=== PATIENT | male | born 1955 | race Caucasian/White ===

== ENCOUNTER 2022-09-13 10:52 | Emergency (ER) | payer BC, OTHER ==
--- OUTSIDE RECORDS SUMMARY | 2022-09-13 11:00 | XMS REPORT | Continuity of Care Document ---
:1955 Author Organization [facility] t Address [address] [place] [address] Care Team Providers Name Role Phone Nile PENNINGTON [facility] Primary Care Physician JIMBO VALERIO Attending Clinician Unavailable LAUREANO HENNING Attending Clinician Unavailable ANA MORILLO Attending Clinician Unavailable Ana Morillo Attending Clinician Tita Oneill MA Attending Clinician Unavailable JIMBO VALERIO Attending Clinician Unavailable Jimbo Valerio Attending Clinician [phone] Emerald Attending Clinician Unavailable Brandin Milan Attending Clinician Hemant Mccoy MD Attending Clinician Flaco David NP Attending Clinician Ana Doll Attending Clinician LAUREANO HENNING Attending Clinician Unavailable Laureano Henning Attending Clinician Shanta Segura RN Attending Clinician Unavailable Tyler Dowd Attending Clinician Unavailable Koudela_A Admitting Clinician Unavailable JIMBO VALERIO Admitting Clinician Unavailable Jimbo Valerio E Admitting Clinician [phone] RICO PERRIN Admitting Clinician Unavailable Rico Perrin Admitting Clinician KNOW, DOES_NOT Admitting Clinician Unavailable Payers Payer Name Policy Type Policy Number Effective Date Expiration Date S ource BCBSTX PPO [id number] 2017 00:00:00 [place] [id number] 2017 [place] [id number] 2020 First Cover[employer] 00:00:00 [place] [id number] 2020 First Cover[employer] 00:00:00 - [facility] Problems Condition Condition Condition Status Onset Resolution Last Treating Co mments Source Name Details Category Date Date Treatment Clinician Date I71.01, I71.01, Diagnosis Active 2021-10-27 Memoria Z95.828 Z95.828 -11 19:30:00 l Active 00:00: Ivan 10/13/2021 00 [facility] S/P S/P Disease Active Overview: [place] insertion insertion 1-10 [facility] e[facility] of of 00:00: g of this endovascul endovascul 00 note ar ar might be thoracic thoracic different aortic aortic from the stent stent original. graft graft Carotid-s ubclavian bypass + TEVAR 04/20/21 Shortness Shortness Disease Active [facility] of breath of breath 06-10 Heal th 00:00: 00 Simple Simple Disease Active [place] obesity obesity 06-10 Health 00:00: 00 I71.2 - I71.2 - Diagnosis Active 2021-06-12 Memoria THORACIC THORACIC 8- 15:33:00 l AORTIC AORTIC 00:01: Ivan ANEURYSM, ANEURYSM, 00 WITH WITH Active 05/04/2021 OPID [place] I71.2 I71.2 Diagnosis Active 2021-05-08 Mem oria Active 05-01 12:44:00 l 05/01/2021 00:00: Petr mcpherson [address] THORACIC THORACIC Diagnosis Active 2021-05-04 Memoria AORTIC AORTIC 04-17 12:19:00 l ANEURYSM, ANEURYSM, 00:00: Herm lazara WITHOUT WITHOUT 00 RUPTUR RUPTUR Active 04/17/2021 [facility] Thoracic Thoracic Disease Active [facility] aortic aortic 04-17 Health aneurysm aneurysm 00:00: without without 00 rupture rupture CHEST PAIN CHEST Diagnosis Active 2021-08-25 Memoria PAIN 04-10 14:47:00 l Active 00:00: Nark[place] 04/10/2021 00 [facility] I71.03 - I71.03 - Diagnosis Active 2021-05-16 Memoria DISSECTION DISSECTION 04-09 15:32:00 l OF OF 00:01: Ivan THORACOABD THORACOABD 00 OMINAL OMINAL Active 04/09/2021 [facility] [place] Dissection Dissection Disease Active U T of of 04-09 Health thoracic thoracic 00:00: aorta aorta 00 Chest pain Chest Problem Active 2021-10-25 M emoria (finding) pain 23:52:56 l (finding) Narka Active Problem 10/25/2021 [facility] Low blood Low blood Problem Active 2021-10-25 Memoria pressure pressure 23:52:56 l (disorder) (disorder) He rmann Active Problem 10/25/2021 [facility] Pain Pain Problem Active 2021-10-25 Memor ia (finding) (finding) 23:52:56 l Active Ivan Problem 10/25/2021 [facility] 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 He rmann (disorder) (disorder) Active Problem 10/25/2021 [facility] THORACIC THORACIC Diagnosis Active 2021-05-08 Memoria AORTIC AORTIC 12:44:00 l ANEURYSM, ANEURYSM, Herm lazara RUPTURED RUPTURED Active [facility] CHEST CHEST Diagnosis Active 2021-08-25 Mem oria PAIN, PAIN, 14:47:00 l UNSPECIFIE UNSPECIFIE He rmlazara D D Active [facility] Chest Chest Problem 2021-04-17 Immanuel nichols pain, pain, 23:04:18 l unspecifie unspecifie Sam bauman 04/17/2021 [facility] Allergies, Adverse Reactions, Alerts Allergy Allergy Status Severity Reaction(s) Onset Inactive Treating Comm ents Source Name Type Date Date Clinician No Known DA Active [facility] 03-28 [place] [facility] 00:00: [address] No Known DA Active [facility] Allergie 03-28 [place] s 00:00: [address] Social History Social Habit Start Date Stop Date Quantity Comments Source Exposure to Not sure [facility] SARS-CoV-2 (event) Social History 2021-04-20 2021-04-20 [facility] 14:19:33 14:19:33 Sex [birth year] [facility] 00:00:00 00:00:00 Smoking Status Start Date Stop Date Source Tobacco smoking consumption unknown [facility] Medications Ordered Filled Start Stop Current Ordering Indication Dosage Frequency Signature Comments Components Source Medication Medication Date Date Medication? Clinician (SIG) Name Name metoprolol Yes PO, Daily, M emoria extended 1-21 0 l release 16:03: Refill(s) Blanca nn 00 Amlodipine Yes PO, Daily, M emoria 1-21 0 l 16:02: Refill(s) Ivan 00 24 HR Yes 500 mg = 1 Memori a Niacin 500 1-21 tab, PO, l MG Extended 16:01: Bedtime, 0 Narka Release 00 Refill(s) Tablet [Niaspan] Sulfamethox Yes 1 tab, PO, Memoria azole 800 7-25 Q12H, X 5 l MG / 16:53: day, # 10 Ivan Trimethopri 00 tab, 0 m 160 MG Refill(s) Oral Tablet [Bactrim] NIFEdipine Yes 60 mg = 1 Me moria 60 mg oral 7-25 tab, PO, l tablet, 16:47: Daily, # Petr n extended 00 30 tab, 0 release Refill(s) carvedilol Yes 25 mg = 1 Me moria 25 mg oral 7-25 tab, PO, l tablet 16:46: Q12H, # 60 Blanca nn 00 tab, 0 Refill(s) Melatonin 3 Yes 3 mg = 1 Me moria MG Extended 7-25 tab, PO, l Release 16:46: Bedtime, Petr n Tablet 00 PRN as needed for insomnia, X 14 day, # 14 tab, 0 Refill(s) Hydrochloro Yes 50 mg = 2 M emoria thiazide 25 7-25 tab, PO, l MG Oral 16:44: Daily, # Petr n Tablet 00 60 tab, 0 Refill(s) lisinopril Yes 40 mg = 2 Me moria 20 mg oral 7-25 tab, PO, l tablet 16:44: Daily, # Ivan 00 60 tab, 0 Refill(s) Aspirin 81 Yes 81 mg = 1 Me moria MG Chewable 7-25 tab, PO, l Tablet 16:43: Daily, # Ivan 00 30 tab, 0 Refill(s) atorvastati Yes 10 mg = 1 M emoria n 10 mg 7-25 tab, PO, l oral tablet 16:43: QAM, # 30 H ermann 00 tab, 0 Refill(s) carvedilol Yes 25mg Q.5D Take 25 mg U T (Coreg) 25 7-25 by mouth Healt h MG tablet 00:00: every 12 00 (twelve) hours. carvedilol 0 Yes 25mg Q.5D Take 25 mg U T (Coreg) 25 7-25 by mouth Healt h MG tablet 00:00: every 12 00 (twelve) hours. carvedilol 0 Yes 25mg Q.5D Take 25 mg U T (Coreg) 25 7-25 by mouth Healt h MG tablet 00:00: every 12 00 (twelve) hours. NIFEdipine Yes 60mg QD Take 60 mg U T CC (Adalat 7-25 by mouth 1 Hea l[facility] CC) 60 MG 00:00: (one) time 24 hr 00 each day. tablet carvedilol Yes 25mg Q.5D Take 25 mg U T (Coreg) 25 7-25 by mouth Healt h MG tablet 00:00: every 12 00 (twelve) hours. NIFEdipine Yes 60mg QD Take 60 mg U T CC (Adalat 7-25 by mouth 1 [facility]a l[facility] CC) 60 MG 00:00: (one) time 24 hr 00 each day. tablet Vancomycin No 2000 mg: Me moria 7-24 infuse l 04:00: over 2.5 Narka 00 hours For adult patients only: Round to nearest 250 mg per Medical Staff approval MEDICATION WASTE Product Size: 1000 mg Product Wasted: ___ mg Vancomycin No Notes: Memor ia 7-23 Vancomycin l 16:27: Pharmacy [place] 55 Dosing Protocol PHARMAC Y USE ONLY Note: This is not a medication order. This is a consultati on order. Vancomycin No 2000 mg: Me moria 7-23 infuse l 15:01: over 2.5 Ivan 00 hours For adult patients only: Round to nearest 250 mg per Medical Staff approval MEDICATION WASTE Product Size: 1000 mg Product Wasted: ___ mg cefepime No Notes: Memoria 7-23 (Same As: l 15:00: Maxipime) MEDICATION WASTE Product Size: 1000 mg Product Wasted: ___ mg NIFEdipine No Notes: Memor ia 60 mg oral 7-23 (Same as: l tablet, 14:00: Adalat CC, Herm lazara Procardia release XL) Give on empty stomach. Take 1 hour before or 2 hours after meal; "Avoid grapefruit and grapefruit juice". Do not crush Hydrochloro No Notes: Gregorio maynor thiazide 7-23 (Same as: l 14:00: Hydrodiuri l) With food. Coreg No Notes: Memoria 7-23 Give with l 02:00: food. Ivan 00 (Same As: Coreg) Lisinopril No Notes: Memor ia 7-22 (Same as: l 21:07: Prinivil, Ivan 00 Zestril) Lisinopril No Notes: Memor ia 7-22 (Same as: l 15:47: Prinivil, Ivan Zestril) Lasix No Notes: Memoria 7-22 (Same as: l 14:00: Lasix) Docusate No Notes: Memoria Sodium 100 7-22 (Same as: l MG Oral 14:00: Colace) Capsule (Do Not [Colace] Crush) metoprolol No Notes: Memor ia tartrate 7-22 (Same as: l 10:00: Lopressor) Tylenol No Notes: Do Memor ia 7-22 not exceed l 05:00: 4 gm/day. (Same as: Tylenol) sennosides, No Notes: Gregorio maynor RETIREMENT 8.6 MG - (Same as: l Oral Tablet 02:00: Senokot) He rm metoprolol No Notes: Memor ia tartrate 7-21 (Same as: l 21:38: Lopressor) Potassium No Notes: Memori a Chloride - (Same as: l 18:51: K-Dur 20) "Do Not Crush" Give with food and full glass of water For patients unable to swallow tablet, dissolve in one half glass of water. Allow about 2 minutes for the tablets to disintegra te. Stir before giving to prepare slurry and administer . Please exclude Patient s with feeding tube less than 14 Maori (Dobhoff, J-tube etc) and pediatric and patients. potassium No Notes: Memori a phosphate-s - (Same as: l odium 18:51: Phos-NaK) phosphate Each 1.5 250 mg-280 gm pkt has mg-160 mg 250mg oral powder phosphorou for s. Mix reconstitut w/2.5oz ion water and stir. potassium No Notes: Memori a phosphate 7-21 (Same as: l 18:51: K Phosphate) Infuse over 4 hour. Do not infuse phosphorou s concurrent ly in the same line as TPN or IVF that contains calcium. For double lumen central lines, phosphorou s may be infused in a separate lumen from TPN. sodium No Notes: Memoria phosphate 7-21 Infuse l 18:51: over 4 [place]arka 00 hour. Do not infuse phosphorou s concurrent ly in the same line as TPN or IVF that contains calcium. For double lumen central lines, phosphorou s may be infused in a separate lumen from TPN. Magnesium No Notes: Memori a Sulfate - WASTE: F/P l 18:51: - Sink; E - Municipal Trash Bin Magnesium No Notes: Memori a Oxide 7- (Same as: l 18:51: Mag-Ox Ivan 400) Magnesium oxide [id number] g elemental magnesium Dose=____m g magnesium oxide (___mg elemental magnesium) Calcium No Notes: Memoria Gluconate 7- WASTE: F/P l 18:51: - Sink; E - Municipal Trash Bin Melatonin 3 No Notes: Gregorio maynor MG Extended 04-22 (Same as: l Release 18:46: Melatonin) Herm lazara Tablet 00 Hydrochloro No Notes: Gregorio maynor thiazide - (Same as: l 12.5 MG 14:00: Microzide) Herm lazara Oral 00 With food. Capsule Simethicone No Notes: Gregorio maynor 7-21 (Same as: l 13:34: Mylicon) Milk of No Notes: Memoria Magnesia 7- (Same as: l 13:34: Milk of Magnesia, MOM) metoprolol No Notes: Memor ia tartrate - (Same as: l 13:00: Lopressor) Metoprolol No 5 mg, Memori a - Route: l 05:00: IVP, Drug form: INJ, Q8H, Dosing Weight 94.636, kg, Start date: 04/22/21 0:00:00 CDT, Duration: 30 day, Stop date: 05/21/21 16:00:00 CDT metoprolol No Notes: Memor ia tartrate - (Same as: l 00:36: Lopressor) 12.5 mg=1/2 X 25 mg TAB Metoprolol No Notes: Memor ia 7-20 (Same as: l 21:12: Lopressor) Push over 2 minutes Hydralazine No Notes: Gregorio maynor 7-20 (Same as: l 21:10: Apresoline ) Push over 5 minutes NS (Bolus) No 500 mL, Gregorio maynor IV 7-20 500 ml/hr, l 14:45: Infuse Over: 1 hr, Route: IV, 500, Drug form: INJ, ONCE, Priority: STAT, Dosing Weight 94.636 kg, Start date: 04/21/21 9:45:00 CDT, Stop date: 04/21/21 9:45:00 CDT, 0 Aspirin 81 No Notes: Memor ia MG Chewable 7-20 Take with l Tablet 14:00: food. atorvastati No Notes: Gregorio maynor n 7-20 (Same As: l 14:00: Lipitor) pantoprazol No Notes: Gregorio maynor e 7-20 Tablet l 14:00: should not be chewed or crushed. (Same as: Protonix) metoprolol No Notes: Memor ia tartrate 7-20 (Same as: l 14:00: Lopressor) Norvasc No Notes: Memoria 7-20 (Same as: l 14:00: Norvasc) Docusate No Notes: Memoria Sodium 50 7-20 (Same as l MG / 14:00: Senokot-S) sennosides, 00 Equiv. to RETIREMENT 8.6 MG Donna-Colac Oral Tablet e. Robaxin No Notes: Memoria 7-20 (Same l 12:20: as:Robaxin ) Acetaminoph No Notes: Max Memoria en 7-20 acetaminop l 07:00: hen 4000 mg/day (4 gm/day). (Same as: Tylenol Extra Strength) Tramadol No Notes: 25 Gregorio maynor 7-20 mg = 1/2 x l 05:00: 50 mg TAB Not to exceed 400mg/day. (Same As: Ultram) Dilaudid No Notes: Memoria 7-20 Same as l 04:48: Dilaudid Ivan 00 Dilaudid No Notes: Memoria 7-20 Same as l 02:56: Dilaudid Ivan 00 Robaxin No Notes: Memoria 7-20 (Same l 02:52: as:Robaxin Ivan 00 ) Ofirmev No Notes: Memoria 7-20 Infuse l 00:09: over 15 Narka minutes Do not exceed 4gm/day of acetaminop hen MEDICATION WASTE Product Size: 1000 mg Product Wasted: ___ mg Oxycodone No Notes: Memori a Hydrochlori 04-21 (Same as: l de 5 MG 00:09: Roxicodone Herm lazara Oral Tablet 00 ) Cardene 40 No Notes: Memor ia mg in NS 04-20 Same as: l 200 mL 23:31: Cardene (Titrate.) 00 Concentrat IV 40 mg ion: (0.2 mg /1 ml ) Dextrose No 12.5 gm, Memor ia 50% Syringe 04-20 25 mL, l (D50W) 23:13: Route: Narka 00 IVP, Drug Form: INJ, Dosing Weight 94.636, kg, PRN, PRN Blood Glucose Results, Start date: 04/20/21 18:13:00 CDT, Duration: 30 day, Stop date: 05/20/21 18:12:00 CDT, 0 Glucagon No 1 mg, Memoria 04-20 Route: IM, l 23:13: Drug form: Ivan 00 PDR/INJ, PRN, Dosing Weight 94.636, kg, PRN Blood Glucose Results, Start date: 04/20/21 18:13:00 CDT, Duration: 30 day, Stop date: 05/20/21 18:12:00 CDT, 0 Insulin No Notes: Memoria Lispro 04-20 (Same as: l 23:13: Humalog) Roll in palms of hands gently; Do not shake vigorously . WASTE: F/P - Black; E - Municipal Trash Bin Stable for 28 days at room temperatur e. Expires in days from ____Date NS 1,000 mL No 1,000 mL, M emoria 04-20 Rate: 40 l 23:13: ml/hr, Narka 00 Infuse over: 25 hr, Route: IV, Dosing Weight 94.636 kg, Total Volume: 1,000, Start date: 04/20/21 18:13:00 CDT, Duration: 30 day, Stop date: 05/20/21 18:12:00 CDT, BSA: 2.15 m2, 0 Fentanyl No Notes: Memoria 7-19 (Same as: l 23:11: Sublimaze) Ivan 00 Preservati ve free. Potassium No Notes: Memori a Chloride 04-20 (Same as: l 23:10: KCL) 10 Ivan 00 mEq/100ml product recommende d for peripheral line administra tion. Infuse no faster than 10 mEq/hr if given peripheral ly. sodium No Notes: Memoria phosphate 04-20 Infuse l 23:10: over 4 Ivan 00 hour. Do not infuse phosphorou s concurrent ly in the same line as TPN or IVF that contains calcium. For double lumen central lines, phosphorou s may be infused in a separate lumen from TPN. potassium No Notes: Memori a phosphate - (Same as: l 23:10: K [place] 00 Phosphate) Infuse over 4 hour. Do not infuse phosphorou s concurrent ly in the same line as TPN or IVF that contains calcium. For double lumen central lines, phosphorou s may be infused in a separate lumen from TPN. potassium No Notes: Memori a phosphate-s - (Same as: l odium 23:10: Phos-NaK) Ivan phosphate 00 Each 1.5 250 mg-280 gm pkt has mg-160 mg 250mg oral powder phosphorou for s. Mix reconstitut w/2.5oz ion water and stir. Magnesium No Notes: Memori a Sulfate 04-20 WASTE: F/P l 23:10: - Sink; E [place]a 00 - Municipal Trash Bin Magnesium No Notes: Memori a Oxide 04-20 (Same as: l 23:10: Mag-Ox Narka 00 400) Magnesium oxide 155np=390t g elemental magnesium Dose=____m g magnesium oxide (___mg elemental magnesium) Calcium No Notes: Memoria Gluconate 04-20 Contains: l 23:10: calcium gluconate 20mg/mL NaCl 0.67% 50mL WASTE: F/P - Sink; E - Municipal Trash Bin calcium No Notes: Memoria carbonate 04-20 (Same As: l 500 mg (200 23:10: Tums) Blanca nn mg 00 Calcium elemental Carbonate calcium) 500 mg = oral tablet 200 mg elemental calcium Dose = mg calcium carbonate ( mg elemental calcium) ondansetron No Route: IV, Memoria (ANES) 04-20 Drug form: l 22:50: INJ, ONCE, Stop date: 04/20/21 17:50:00 CDT dexamethaso No Route: IV, Memoria ne (ANES) 04-20 Drug form: l 22:50: INJ, ONCE, Stop date: 04/20/21 17:50:00 CDT sugammadex No Route: IV, M emoria (ANES) 04-20 Drug form: l 22:50: SOLN, ONCE, Stop date: 04/20/21 17:50:00 CDT ceFAZolin No Route: IV, Me moria (ANES) 04-20 Drug form: l 22:21: INJ, ONCE, Stop date: 04/20/21 17:21:00 CDT fentaNYL No Route: IV, Mem oria (ANES) 04-20 Drug form: l 22:16: INJ, ONCE, Stop date: 04/20/21 17:16:00 CDT protamine No Route: IV, Me moria (ANES) 04-20 Drug form: l 22:10: INJ, ONCE, Stop date: 04/20/21 17:10:00 CDT Labetalol No 10 mg, 2 Gregorio maynor 7-19 mL, Route: l 21:39: IVP, Drug form: INJ, Q5Min, Dosing Weight 94.636, kg, PRN Elevated BP, Start date: 04/20/21 16:39:00 CDT, Duration: 5 doses or times, Stop date: 04/21/21 0:00:00 CDT, 0 Acetaminoph No Notes: Max Memoria en - acetaminop l 21:39: hen 4000 Narka mg/day (4 gm/day). (Same as: Tylenol Extra Strength) Oxycodone No Notes: Memori a Hydrochlori - (Same as: l de 5 MG 21:39: Roxicodone Herm lazara Oral Tablet ) Fentanyl No Notes: Memoria 7-19 (Same as: l 21:39: Sublimaze) Preservati ve free. Flumazenil No Notes: Memor ia 7-19 (Same as: l 21:39: Romazicon) Naloxone No Notes: Memoria 7-19 Same as l 21:39: Narcan Ondansetron No Notes: Gregorio maynor 7-19 (Same as: l 21:39: Zofran) MEDICATION WASTE Product Size: 4 mg Product Wasted: ___ mg Hydralazine No Notes: Gregorio maynor 7-19 (Same as: l 21:39: Apresoline Ivan ) Push over 5 minutes rocuronium No Route: IV, M emoria (ANES) 7- Drug form: l 20:49: INJ, ONCE, Narka 00 Stop date: 04/20/21 15:49:00 CDT norepinephr No Route: IV, Memoria ine (ANES) 7-19 Drug form: l 10 20:14: INJ, Start Ivan microgram 00 date: 04/20/21 15:14:00 CDT, Stop date: 04/20/21 16:14:00 CDT heparin No Route: IV, Gregorio maynor (ANES) 04-20 Drug form: l 20:09: INJ, ONCE, Stop date: 04/20/21 15:09:00 CDT calcium No Route: IV, Gregorio maynor chloride 04-20 Drug form: l (ANES) 19:43: INJ, ONCE, Blanca Stop date: 04/20/21 14:43:00 CDT ceFAZolin No Route: IV, Me moria (ANES) 04-20 Drug form: l 19:38: INJ, ONCE, Stop date: 04/20/21 14:38:00 CDT fentaNYL No Route: IV, Mem oria (ANES) 04-20 Drug form: l 19:38: INJ, ONCE, Stop date: 04/20/21 14:38:00 CDT propofol No Route: IV, Mem oria (ANES) 04-20 Drug form: l 19:38: INJ, ONCE, Stop date: 04/20/21 14:38:00 CDT lidocaine No Route: IV, Me moria (ANES) 04-20 Drug form: l 19:38: INJ, ONCE, Stop date: 04/20/21 14:38:00 CDT rocuronium No Route: IV, M emoria (ANES) 04-20 Drug form: l 18:42: INJ, ONCE, Stop date: 04/20/21 13:42:00 CDT Isolyte S No Route: IV, Me moria PH 7.4 04-20 Total l (ANES) 1000 18:01: Volume: Her carranza mL 00 1,000, Start date: 04/20/21 13:01:00 CDT, Stop date: 04/20/21 14:01:00 CDT Sulfamethox No Notes: One Memoria azole 800 7-15 DS tablet l MG / 02:00: = Trimethopri trimethopr m 160 MG im 160mg + Oral Tablet sulfametho [Bactrim] xazole 800 mg Dose based on trimethopr im component On empty stomach with a glass of water. (Same As: Bactrim DS, Septra DS) Aspirin Low 2020-0 Yes 81mg QD Chew 81 mg UT Dose 81 MG 7-15 1 (one) Health chewable 00:00: time each tablet 00 day. Aspirin Low 2020-0 Yes 81mg QD Chew 81 mg UT Dose 81 MG 7-15 1 (one) Health chewable 00:00: time each tablet 00 day. Aspirin Low 2020-0 Yes 81mg QD Chew 81 mg UT Dose 81 MG 7-15 1 (one) Health chewable 00:00: time each tablet 00 day. lisinopril 2020-0 Yes 40mg QD Take 40 mg U T 20 MG 7-15 by mouth 1 Health tablet 00:00: (one) time 00 each day. Aspirin Low 2020-0 Yes 81mg QD Chew 81 mg UT Dose 81 MG 7-15 1 (one) Health chewable 00:00: time each tablet 00 day. lisinopril 2020-0 Yes 40mg QD Take 40 mg U T 20 MG 7-15 by mouth 1 Health tablet 00:00: (one) time 00 each day. Aspirin 81 2020-0 Yes 81 mg = 1 Me moria MG Chewable 7-14 tab, PO, l Tablet 23:42: Daily, # Ivan 00 30 tab, 0 Refill(s) lisinopril 0 Yes 40 mg = 2 Me moria 20 mg oral 7-14 tab, PO, l tablet 23:40: Daily, # Ivan 00 60 tab, 0 Refill(s) Sulfamethox 0 Yes 1 tab, PO, Memoria azole 800 7-14 Q12H, X 5 l MG / 23:40: day, # 10 Narka Trimethopri 00 tab, 0 m 160 MG Refill(s) Oral Tablet [Bactrim] Amlodipine 0 Yes 1 cap, PO, M emoria 5 MG / 7-14 QAM, # 30 l Benazepril 23:39: cap, 0 Blanca nn hydrochlori 00 Refill(s) de 40 MG Oral Capsule atorvastati Yes 10 mg = 1 M emoria n 10 mg 7-14 tab, PO, l oral tablet 23:39: QAM, # 30 H ermann 00 tab, 0 Refill(s) hydrochloro Yes 12.5 mg = M emoria thiazide 7-14 1 tab, PO, l 12.5 mg 23:39: QAM, # 30 Blanca nn oral tablet 00 tab, 0 Refill(s) metoprolol Yes 25 mg = 1 Me moria tartrate 25 7-14 tab, PO, l mg oral 23:39: Q12H, # 60 Herm lazara tablet 00 tab, 0 Refill(s) niacin 500 Yes 1,000 mg = M emoria mg oral 7-14 2 tab, PO, l tablet, 23:39: Bedtime, # Herm lazara extended 00 60 tab, 0 release Refill(s) pantoprazol Yes 40 mg = 1 M emoria e 40 mg 7-14 tab, PO, l oral 23:39: Daily, # Ivan enteric 00 30 tab, 0 coated Refill(s) tablet Doxycycline No Notes: NO M emoria 04-14 MILK/ANTAC l 17:00: IDS/IRON Narka 00 Take 1 hour before or 2 hours after dairy products Motrin No Notes: Memoria 7-13 (Same as: l 01:55: Motrin) Narka 00 "Do Not Crush" Give with food. hydroCHLORO Yes UT thiazide 7-12 Health (HYDRODiuri 00:00: l) 12.5 MG 00 tablet hydroCHLORO 0 Yes UT thiazide 7-12 Health (HYDRODiuri 00:00: l) 12.5 MG 00 tablet hydroCHLORO 0 Yes UT thiazide 7-12 Health (HYDRODiuri 00:00: l) 12.5 MG 00 tablet hydroCHLORO 2020-0 Yes UT thiazide 7-12 Health (HYDRODiuri 00:00: l) 12.5 MG 00 tablet hydroCHLORO 2020-0 Yes UT thiazide 7-12 Health (HYDRODiuri 00:00: l) 12.5 MG 00 tablet hydroCHLORO 0 Yes UT thiazide 7-12 Health (HYDRODiuri 00:00: l) 12.5 MG 00 tablet hydroCHLORO 0 Yes UT thiazide 7-12 Health (HYDRODiuri 00:00: l) 12.5 MG 00 tablet amLODIPine- 2021-0 Yes UT benazepril 7-12 Health (Lotrel) 00:00: 5-40 MG 00 capsule hydroCHLORO 2020-0 Yes UT thiazide 7-12 Health (HYDRODiuri 00:00: l) 12.5 MG 00 tablet amLODIPine- 2020-0 Yes UT benazepril 7-12 Health (Lotrel) 00:00: 5-40 MG 00 capsule hydroCHLORO 2020-0 Yes UT thiazide 7-12 Health (HYDRODiuri 00:00: l) 12.5 MG 00 tablet amLODIPine- 2020-0 Yes UT benazepril 7-12 Health (Lotrel) 00:00: 5-40 MG 00 capsule hydroCHLORO 2020-0 Yes UT thiazide 7-12 Health (HYDRODiuri 00:00: l) 12.5 MG 00 tablet hydroCHLORO 2020-0 Yes UT thiazide 7-12 Health (HYDRODiuri 00:00: l) 12.5 MG 00 tablet hydroCHLORO 2020-0 Yes UT thiazide 7-12 Health (HYDRODiuri 00:00: l) 12.5 MG 00 tablet hydroCHLORO 2020-0 Yes UT thiazide 7-12 Health (HYDRODiuri 00:00: l) 12.5 MG 00 tablet hydroCHLORO 2020-0 Yes UT thiazide 7-12 Health (HYDRODiuri 00:00: l) 12.5 MG 00 tablet hydroCHLORO 2020-0 Yes UT thiazide 7-12 Health (HYDRODiuri 00:00: l) 12.5 MG 00 tablet hydroCHLORO 2020-0 Yes UT thiazide 7-12 Health (HYDRODiuri 00:00: l) 12.5 MG 00 tablet hydroCHLORO 2020-0 Yes UT thiazide 7-12 Health (HYDRODiuri 00:00: l) 12.5 MG 00 tablet amLODIPine- 2020-0 2020- No UT benazepril 7-12 06-12 Health (Lotrel) 00:00: 04:59 5-40 MG 00 :00 capsule amLODIPine- 2020-0 2020- No UT benazepril 7-12 06-12 Health (Lotrel) 00:00: 04:59 5-40 MG 00 :00 capsule metoprolol 2020-0 No Notes: Memor ia tartrate 7-11 (Same as: l 14:00: Lopressor) Amlodipine No Notes: Memor ia 7-11 (Same as: l 14:00: Norvasc) Labetalol No 20 mg, 4 Gregorio maynor 7-11 mL, Route: l 12:13: IVP, Drug form: INJ, Q15Min, Dosing Weight 95.3, kg, PRN Hypertensi on, Start date: 04/12/21 7:13:00 CDT, Duration: 3 doses or times, Stop date: Limited # of times, 0 Amlodipine No Notes: [facility] 7-11 (Same as: l 04:30: Norvasc) Hydralazine No Notes: Gregorio maynor 7-11 (Same as: l 04:25: Apresoline ) Push over 5 minutes Morphine No Notes: Memoria 7-11 (Same l 04:17: as:MORPhin e Sulfate) niacin 500 No Notes: Memor ia mg oral 7-11 With food. l tablet, 02:00: Narka extended 00 release sennosides, No Notes: Gregorio maynor RETIREMENT 7-11 (Same as: l 02:00: Senokot) Metoprolol No Notes: Memor ia 7-10 (Same as: l 23:34: Lopressor) Push over 2 minutes Morphine No Notes: Memoria 7-10 (Same l 23:32: as:MORPhin e Sulfate) Amlodipine No 1 cap, Memor ia 5 MG / 7-10 Route: PO, l Benazepril 14:00: Drug Form: H ermann hydrochlori 00 CAP, de 40 MG Dosing Oral Weight Capsule 90.909, kg, Daily, Start date: 04/11/21 9:00:00 CDT, Duration: 30 day, Stop date: 05/10/21 9:00:00 CDT atorvastati No Notes: Gregorio maynor n 7-10 (Same As: l 14:00: Lipitor) Hydrochloro No Notes: Gregorio maynor thiazide 7-10 (Same as: l 12.5 MG 14:00: Microzide) Herm lazara Oral 00 With food. Capsule Metoprolol No Notes: Memor ia Succinate 7-10 (Same as: l ER 25 mg 14:00: Toprol XL) Her carranza oral 00 Do Not tablet, Crush extended release pantoprazol No Notes: Gregorio maynor e 7-10 Tablet l 14:00: should not be chewed or crushed. (Same as: Protonix) POLYETHYLEN No Notes: Gregorio maynor E GLYCOL 7-10 Dissolve l 3350 14:00: in 8 oz of water or juice. (Same as: Miralax) Amlodipine No Notes: Memor ia 7-10 (Same as: l 14:00: Norvasc) Narka 00 Lisinopril No Notes: Memor ia 7-10 (Same as: l 14:00: Prinivil, Zestril) Hydralazine No Notes: Gregorio maynor 7-10 (Same as: l 05:36: Apresoline ) Push over 5 minutes Aspirin No Notes: Memoria 7-10 Take with l 03:10: food. Dextrose No 12.5 gm, Memor ia 50% Syringe 7-10 25 mL, l (D50W) 02:52: Route: IVP, Drug Form: INJ, Dosing Weight 90.909, kg, PRN, PRN Blood Glucose Results, Start date: 04/10/21 21:52:00 CDT, Duration: 30 day, Stop date: 05/10/21 21:51:00 CDT, 0 Glucagon No 1 mg, Memoria 7-10 Route: IM, l 02:52: Drug form: PDR/INJ, PRN, Dosing Weight 90.909, kg, PRN Blood Glucose Results, Start date: 04/10/21 21:52:00 CDT, Duration: 30 day, Stop date: 05/10/21 21:51:00 CDT, 0 Ondansetron No Notes: Gregorio maynor 7-10 (Same as: l 02:52: Zofran) MEDICATION WASTE Product Size: 4 mg Product Wasted: ___ mg Melatonin No Notes: Memori a 10 (Same as: l 02:52: Melatonin) Acetaminoph No Notes: Do M emoria en 04-11 not exceed l 02:52: 4 gm/day. (Same as: Tylenol) pantoprazol No 40 mg = 1 M emoria e 40 mg 7-10 tab, PO, l oral 02:31: Daily, # Ivan enteric 00 30 tab, 0 coated Refill(s) tablet Metoprolol No 25 mg = 1 Me moria Succinate 7-10 tab, PO, l ER 25 mg 02:31: QAM, # 30 Herm lazara oral 00 tab tablet, extended release niacin 500 No 500 mg = 1 M emoria mg oral 7-10 tab, PO, l tablet, 02:31: Bedtime, # Herm lazara extended 00 30 tab release atorvastati No 10 mg = 1 M emoria n 10 mg 7-10 tab, PO, l oral tablet 02:31: QAM, # 30 H ermann 00 tab hydrochloro No 12.5 mg = M emoria thiazide 7-10 1 tab, PO, l 12.5 mg 02:31: QAM, # 30 Blanca nn oral tablet 00 tab Amlodipine No 1 cap, PO, M emoria 5 MG / 7-10 QAM, # 30 l Benazepril 02:31: cap hydrochlori 00 de 40 MG Oral Capsule Iohexol No 120 mL, Memoria 04-10 Route: l 20:50: IVP, Drug Form: SOLN, Dosing Weight 90.909, kg, ONCALL, STAT, Start date: 04/10/21 15:50:00 CDT, Duration: 1 doses or times, Dose = 2.2ml/kg, Max dose = 100ml -- "To be infused by Radiology Staff ONLY" pantoprazol Yes 40mg QD Take 40 mg UT e 7-06 by mouth 1 Health (ProtoNix) 00:00: (one) time 40 MG EC 00 each day. tablet pantoprazol 2021-0 Yes 40mg QD Take 40 mg UT e 7-06 by mouth 1 Health (ProtoNix) 00:00: (one) time 40 MG EC 00 each day. tablet pantoprazol 2021-0 Yes 40mg QD Take 40 mg UT e 7-06 by mouth 1 Health (ProtoNix) 00:00: (one) time 40 MG EC 00 each day. tablet pantoprazol 2021-0 Yes 40mg QD Take 40 mg UT e 7-06 by mouth 1 Health (ProtoNix) 00:00: (one) time 40 MG EC 00 each day. tablet pantoprazol 2021-0 Yes 40mg QD Take 40 mg UT e 7-06 by mouth 1 Health (ProtoNix) 00:00: (one) time 40 MG EC 00 each day. tablet pantoprazol 2021-0 Yes 40mg QD Take 40 mg UT e 7-06 by mouth 1 Health (ProtoNix) 00:00: (one) time 40 MG EC 00 each day. tablet pantoprazol 2021-0 Yes 40mg QD Take 40 mg UT e 7-06 by mouth 1 Health (ProtoNix) 00:00: (one) time 40 MG EC 00 each day. tablet pantoprazol 2021-0 Yes 40mg QD Take 40 mg UT e 7-06 by mouth 1 Health (ProtoNix) 00:00: (one) time 40 MG EC 00 each day. tablet metoprolol 2021-0 Yes 25mg QD Take 25 mg U T succinate 7-06 by mouth 1 Heal th XL 00:00: (one) time (Toprol-XL) 00 each day. 25 MG 24 hr tablet pantoprazol 2021-0 Yes 40mg QD Take 40 mg UT e 7-06 by mouth 1 Health (ProtoNix) 00:00: (one) time 40 MG EC 00 each day. tablet metoprolol 2021-0 Yes 25mg QD Take 25 mg U T succinate 7-06 by mouth 1 Heal th XL 00:00: (one) time (Toprol-XL) 00 each day. 25 MG 24 hr tablet pantoprazol 2021-0 Yes 40mg QD Take 40 mg UT e 7-06 by mouth 1 Health (ProtoNix) 00:00: (one) time 40 MG EC 00 each day. tablet metoprolol 1-0 Yes 25mg QD Take 25 mg U T succinate 06 by mouth 1 Heal th XL 00:00: (one) time (Toprol-XL) 00 each day. 25 MG 24 hr tablet pantoprazol 1-0 Yes 40mg QD Take 40 mg UT e 7-06 by mouth 1 Health (ProtoNix) 00:00: (one) time 40 MG EC 00 each day. tablet pantoprazol 2021-0 Yes 40mg QD Take 40 mg UT e 7-06 by mouth 1 Health (ProtoNix) 00:00: (one) time 40 MG EC 00 each day. tablet pantoprazol 2021-0 Yes 40mg QD Take 40 mg UT e 7-06 by mouth 1 Health (ProtoNix) 00:00: (one) time 40 MG EC 00 each day. tablet pantoprazol 2021-0 Yes 40mg QD Take 40 mg UT e 7-06 by mouth 1 Health (ProtoNix) 00:00: (one) time 40 MG EC 00 each day. tablet pantoprazol 1-0 Yes 40mg QD Take 40 mg UT e 7-06 by mouth 1 Health (ProtoNix) 00:00: (one) time 40 MG EC 00 each day. tablet metoprolol 1-0 2021- No 25mg QD Take 25 mg UT succinate 04-07 by mouth 1 Hea lth XL 00:00: 00:00 (one) time (Toprol-XL) 00 :00 each day. 25 MG 24 hr tablet metoprolol 1-0 2021- No 25mg QD Take 25 mg UT succinate 04-07 by mouth 1 Hea lth XL 00:00: 00:00 (one) time (Toprol-XL) 00 :00 each day. 25 MG 24 hr tablet niacin 1-0 Yes 500mg Take 500 UT (Niaspan) 7-05 mg by Health 500 MG ER 00:00: mouth tablet 00 every night. niacin 2021-0 Yes 500mg Take 500 UT (Niaspan) 7-05 mg by Health 500 MG ER 00:00: mouth tablet 00 every night. niacin 2021-0 Yes 500mg Take 500 UT (Niaspan) 7-05 mg by Health 500 MG ER 00:00: mouth tablet 00 every night. niacin 2021-0 Yes 500mg Take 500 UT (Niaspan) 7-05 mg by Health 500 MG ER 00:00: mouth tablet 00 every night. niacin 2021-0 Yes 500mg Take 500 UT (Niaspan) 7-05 mg by Health 500 MG ER 00:00: mouth tablet 00 every night. niacin 2021-0 Yes 500mg Take 500 UT (Niaspan) 7-05 mg by Health 500 MG ER 00:00: mouth tablet 00 every night. niacin 2021-0 Yes 500mg Take 500 UT (Niaspan) 7-05 mg by Health 500 MG ER 00:00: mouth tablet 00 every night. niacin 1-0 Yes 500mg Take 500 UT (Niaspan) 7-05 mg by Health 500 MG ER 00:00: mouth tablet 00 every night. niacin 1-0 Yes 500mg Take 500 UT (Niaspan) 7-05 mg by Health 500 MG ER 00:00: mouth tablet 00 every night. niacin 1-0 Yes 500mg Take 500 UT (Niaspan) 7-05 mg by [facility] 500 MG ER 00:00: mouth tablet 00 every night. niacin 1-0 Yes 500mg Take 500 UT (Niaspan) 7-05 mg by Health 500 MG ER 00:00: mouth tablet 00 every night. niacin 1-0 Yes 500mg Take 500 UT (Niaspan) 7-05 mg by Health 500 MG ER 00:00: mouth tablet 00 every night. niacin 1-0 Yes 500mg Take 500 UT (Niaspan) 7-05 mg by Health 500 MG ER 00:00: mouth tablet 00 every night. niacin 1-0 Yes 500mg Take 500 UT (Niaspan) 7-05 mg by Health 500 MG ER 00:00: mouth tablet 00 every night. niacin 2021-0 Yes 500mg Take 500 UT (Niaspan) 7-05 mg by Health 500 MG ER 00:00: mouth tablet 00 every night. niacin 2021-0 Yes 500mg Take 500 UT (Niaspan) 7-05 mg by Health 500 MG ER 00:00: mouth tablet 00 every night. niacin 2021-0 Yes 500mg Take 500 UT (Niaspan) 7-05 mg by Health 500 MG ER 00:00: mouth tablet 00 every night. atorvastati 2021-0 Yes 10mg QD Take 10 mg UT n (Lipitor) 6-29 by mouth 1 He alth 10 MG 00:00: (one) time tablet 00 each day. atorvastati 2021-0 Yes 10mg QD Take 10 mg UT n (Lipitor) 6-29 by mouth 1 He alth 10 MG 00:00: (one) time tablet 00 each day. atorvastati 2021-0 Yes 10mg QD Take 10 mg UT n (Lipitor) 6-29 by mouth 1 He alth 10 MG 00:00: (one) time tablet 00 each day. atorvastati 2021-0 Yes 10mg QD Take 10 mg UT n (Lipitor) 6-29 by mouth 1 He alth 10 MG 00:00: (one) time tablet 00 each day. atorvastati 2021-0 Yes 10mg QD Take 10 mg UT n (Lipitor) 6-29 by mouth 1 He alth 10 MG 00:00: (one) time tablet 00 each day. atorvastati 2021-0 Yes 10mg QD Take 10 mg UT n (Lipitor) 6-29 by mouth 1 He alth 10 MG 00:00: (one) time tablet 00 each day. atorvastati 2021-0 Yes 10mg QD Take 10 mg UT n (Lipitor) 6-29 by mouth 1 He alth 10 MG 00:00: (one) time tablet 00 each day. atorvastati 2021-0 Yes 10mg QD Take 10 mg UT n (Lipitor) 6-29 by mouth 1 He alth 10 MG 00:00: (one) time tablet 00 each day. atorvastati 2021-0 Yes 10mg QD Take 10 mg UT n (Lipitor) 6-29 by mouth 1 He alth 10 MG 00:00: (one) time tablet 00 each day. atorvastati 2021-0 Yes 10mg QD Take 10 mg UT n (Lipitor) 6-29 by mouth 1 He alth 10 MG 00:00: (one) time tablet 00 each day. atorvastati 2021-0 Yes 10mg QD Take 10 mg UT n (Lipitor) 6-29 by mouth 1 He alth 10 MG 00:00: (one) time tablet 00 each day. atorvastati 2021-0 Yes 10mg QD Take 10 mg UT n (Lipitor) 6-29 by mouth 1 He alth 10 MG 00:00: (one) time tablet 00 each day. atorvastati 2020-0 Yes 10mg QD Take 10 mg UT n (Lipitor) 6-29 by mouth 1 He alth 10 MG 00:00: (one) time tablet 00 each day. atorvastati 2020-0 Yes 10mg QD Take 10 mg UT n (Lipitor) 6-29 by mouth 1 He alth 10 MG 00:00: (one) time tablet 00 each day. atorvastati 2020-0 Yes 10mg QD Take 10 mg UT n (Lipitor) 6-29 by mouth 1 He alth 10 MG 00:00: (one) time tablet 00 each day. atorvastati 2020-0 Yes 10mg QD Take 10 mg UT n (Lipitor) 6-29 by mouth 1 He alth 10 MG 00:00: (one) time tablet 00 each day. atorvastati 2020-0 Yes 10mg QD Take 10 mg UT n (Lipitor) 6-29 by mouth 1 He alth 10 MG 00:00: (one) time tablet 00 each day. sulfamethox sulfamethox No sulfametho [place] azole 800 azole 800 xazole 800 da mg-trimetho mg-trimetho mg-trimeth Medical prim 160 mg prim 160 mg oprim 160 Group tablet 1 tablet 1 mg tablet tablet tablet 1 tablet twice daily twice daily twice x 5 days x 5 days daily x 5 days amlodipine amlodipine No amlodipine [place] 5 5 5 da mg-benazepr mg-benazepr mg-benazep Medical il 40 mg il 40 mg ril 40 mg Gr oup capsule capsule capsule TAKE 1 TAKE 1 TAKE 1 CAPSULE BY CAPSULE BY CAPSULE BY MOUTH EVERY MOUTH EVERY MOUTH DAY DAY EVERY DAY atorvastati atorvastati No atorvastat [place] n 10 mg n 10 mg in 10 mg da tablet TAKE tablet TAKE tablet Medical 1 TABLET BY 1 TABLET BY TAKE 1 Group MOUTH EVERY MOUTH EVERY TABLET BY DAY DAY MOUTH EVERY DAY hydrochloro hydrochloro No hydrochlor [place] thiazide thiazide othiazide da 12.5 mg 12.5 mg 12.5 mg Medica l tablet TAKE tablet TAKE tablet Group 1 TABLET BY 1 TABLET BY TAKE 1 MOUTH EVERY MOUTH EVERY TABLET BY DAY IN THE DAY IN THE MOUTH MORNING MORNING EVERY DAY IN THE MORNING lisinopril lisinopril No lisinopril [place] 20 mg 20 mg 20 mg da tablet 1 tablet 1 tablet 1 Med ical tab po qd tab po qd tab po qd Group metoprolol metoprolol No metoprolol [place] succinate succinate succinate da ER 25 mg ER 25 mg ER 25 mg Med ical tablet,exte tablet,exte tablet,ext Group nded nded ended release 24 release 24 release 24 hr TAKE 1 hr TAKE 1 hr TAKE 1 TABLET BY TABLET BY TABLET BY MOUTH EVERY MOUTH EVERY MOUTH DAY DAY EVERY DAY niacin ER niacin ER No niacin ER [place] 500 mg 500 mg 500 mg da tablet,exte tablet,exte tablet,ext Medical nded nded ended Group release 24 release 24 release 24 hr TAKE 1 hr TAKE 1 hr TAKE 1 TABLET BY TABLET BY TABLET BY MOUTH MOUTH MOUTH EVERYDAY AT EVERYDAY AT EVERYDAY BEDTIME BEDTIME AT BEDTIME pantoprazol pantoprazol No pantoprazo [place] e 40 mg e 40 mg le 40 mg da tablet,sharon tablet,sharon tablet,del Medical yed release yed release ayed G roup TAKE 1 TAKE 1 release TABLET BY TABLET BY TAKE 1 MOUTH EVERY MOUTH EVERY TABLET BY DAY DAY MOUTH EVERY DAY Immunizations Ordered Immunization Filled Immunization Date Status Commen ts Source Name Name pneumococcal 2010-11-29 Completed [facility] 23-valent vaccine 16:45:00 Narka Pneumococcal 2010-11-29 Completed [facility] Polysaccharide PPV23 00:00:00 Pneumococcal 2010-11-29 Completed [facility] Polysaccharide PPV23 00:00:00 Pneumococcal 2010-11-29 Completed [facility] Polysaccharide PPV23 00:00:00 Pneumococcal 2010-11-29 Completed [facility] Polysaccharide PPV23 00:00:00 Pneumococcal 2010-11-29 Completed [facility] Polysaccharide PPV23 00:00:00 Pneumococcal 2010-11-29 Completed [facility] Polysaccharide PPV23 00:00:00 Pneumococcal 2010-11-29 Completed [facility] Polysaccharide PPV23 00:00:00 Pneumococcal 2010-11-29 Completed [facility] Polysaccharide PPV23 00:00:00 Pneumococcal 2010-11-29 Completed [facility] Polysaccharide PPV23 00:00:00 Pneumococcal 2010-11-29 Completed [facility] Polysaccharide PPV23 00:00:00 Pneumococcal 2010-11-29 Completed [facility] Polysaccharide PPV23 00:00:00 Pneumococcal 2010-11-29 Completed [facility] Polysaccharide PPV23 00:00:00 Pneumococcal 2010-11-29 Completed [facility] Polysaccharide PPV23 00:00:00 Pneumococcal 2010-11-29 Completed [facility] Polysaccharide PPV23 00:00:00 Pneumococcal 2010-11-29 Completed [facility] Polysaccharide PPV23 00:00:00 Vital Signs Vital Name Observation Time Observation Value Comments Source Systolic blood 2021-06-11 16:15:00 141 mm[Hg[facility] Diastolic blood 2021-06-11 16:15:00 75 mm[Hg] [facility] Heart rate 2021-06-11 16:15:00 74 [facility] 2021-06-11 16:15:00 [facility].61 [facility] height 2021-06-11 16:15:[address] [facility] Body weight 2021-06-11 16:15:00 [facility] BMI 2021-06-11 16:15:00 29.60 kg/m2 [facility] Oxygen saturation in 2021-06-11 16:15:00 100 /min [facility] Arterial blood by Pulse oximetry BP Diastolic 2021-04-17 00:00:00 63 [facility]Hg[facility] Height 2021-04-17 00:00:00 67 [in_i] [facility] BMI (Body Mass 2021-04-17 00:00:00 33.4 kg/m2 [facility]) Group BP Systolic 2021-04-17 00:00:00 113 mm[Hg] [facility] Body Weight 2021-04-17 00:00:00 3410 [oz_av] [facility] Height 2021-10-23 14:30:00 170.18 cm [facility] Weight 2021-10-23 14:30:00 [facility] BMI Calculated 2021-10-23 14:30:00 Johana Mckeon Height 2021-10-23 14:26:00 170.18 cm [facility] Weight 2021-10-23 14:26:00 [facility] BMI Calculated 2021-10-23 14:26:00 Johana Mckeon Systolic (mm Hg) 2021-04-26 15:00:00 Gregorio rial Ivan Diastolic (mm Hg) 2021-04-26 15:00:00 Mem orial Narka Systolic (mm Hg) 2021-04-26 14:00:00 Gregorio rial Ivan Diastolic (mm Hg) 2021-04-26 14:00:00 Mem orial Narka Respitory Rate 2021-04-26 12:52:00 Memori al Narka Systolic (mm Hg) 2021-04-26 12:52:00 Gregorio rial Narka Diastolic (mm Hg) 2021-04-26 12:52:00 Mem orial Ivan Respitory Rate 2021-04-26 12:00:00 Memori al Ivan Respitory Rate 2021-04-26 10:00:00 Memori al Narka Temperature Oral (F) 2021-04-26 09:00:00 98.9 F [facility] Temperature Oral (F) 2021-04-25 01:00:00 99.5 F [facility] Ivan Temperature Oral (F) 2021-04-24 22:27:00 99.9 F [facility] Height 2021-04-24 16:27:00 172.72 cm [facility] Weight 2021-04-24 16:27:00 [facility] Height 2021-04-20 16:04:00 172.72 cm [facility] Weight 2021-04-20 16:04:00 [facility] Ivan BMI Calculated 2021-04-20 16:04:00 Memori al Ivan Height 2021-04-18 05:59:00 170 cm [facility] Ivan Weight 2021-04-18 05:59:00 [facility] BMI Calculated 2021-04-18 05:59:00 Memori al Narka BMI Calculated 2021-04-18 05:57:00 Memori al Ivan Respitory Rate 2021-04-15 23:00:00 Memori al Narka Systolic (mm Hg) 2021-04-15 23:00:00 Gregorio rial Narka Diastolic (mm Hg) 2021-04-15 23:00:00 Mem orial Narka Respitory Rate 2021-04-15 22:00:00 Memori al Ivan Systolic (mm Hg) 2021-04-15 22:00:00 Gregorio rial Ivan Diastolic (mm Hg) 2021-04-15 22:00:00 Mem orial Narka Systolic (mm Hg) 2021-04-15 21:00:00 Gregorio rial Narka Diastolic (mm Hg) 2021-04-15 21:00:00 Mem orial Narka Respitory Rate 2021-04-15 21:00:00 Memori al Narka Temperature Oral (F) 2021-04-15 10:00:00 100.3 F [facility] Ivan Temperature Oral (F) 2021-04-15 05:00:00 99.8 F [facility] Ivan Temperature Oral (F) 2021-04-15 03:00:00 98.8 F [facility] Ivan Respitory Rate 2021-04-13 04:00:00 Memori al Narka Systolic (mm Hg) 2021-04-13 04:00:00 Gregorio rial Ivan Diastolic (mm Hg) 2021-04-13 04:00:00 Mem orial Ivan Respitory Rate 2021-04-13 03:00:00 Memori al Narka Systolic (mm Hg) 2021-04-13 03:00:00 Gregorio rial Narka Diastolic (mm Hg) 2021-04-13 03:00:00 Mem orial Narka Respitory Rate 2021-04-13 02:00:00 Memori al Narka Systolic (mm Hg) 2021-04-13 02:00:00 Gregorio rial Narka Diastolic (mm Hg) 2021-04-13 02:00:00 Mem orial Narka Temperature Oral (F) 2021-04-13 01:00:00 99.3 F [facility] Ivan Temperature Oral (F) 2021-04-12 18:40:00 99.2 F [facility] Temperature Oral (F) 2021-04-12 12:00:00 99.4 F [facility] Heart Rate 2021-04-11 04:19:00 [facility] Ivan Height 2021-04-11 03:54:00 170.18 cm [facility] Ivan Weight 2021-04-11 03:54:00 [facility] Ivan BMI Calculated 2021-04-11 03:54:00 Memori al Ivan Weight 2021-04-10 20:04:00 [facility] Narka Heart Rate 2021-04-10 20:04:00 [facility] Narka Procedures Procedure Date / Time Performed Performing Clinician [facility] e [place] [facility] ANGIO ABD&PLVIS CNTRST 2021-05-08 [facility]:15[facility]WO CNTRST IMGES MO CT ANGIO ABD&PLVIS CNTRST 2021-05-08 18:15:00 Josias Valerio [facility] MTRL W/WO CNTRST IMGES Plan of Care Planned Activity Planned Date Details Comments Source Diagnostic Test 2021-04-17 rapid SARS CoV + SARS [facility] Pending 00:00:00 CoV 2 Ag, QL IA, Group respiratory specimen [code = rapid SARS CoV + SARS CoV 2 Ag, QL IA, respiratory specimen] Encounters Start End Encounter Admission Attending Care Care Encounter Source Date/Time Date/Time Type Type Clinicians Facility Department ID 2021-05-21 Outpatient VIKRAM [facility] [id number] [place] 01:03:38 [facility] 2021-05-01 Outpatient [facility] [id number] [place] 14:22:03 [facility] 2021-04-02 Outpatient LAUREANO HENNING [facility] [id number] [place] 11:11:08 Health 2021-10-29 2021-10-29 Telemedici [facility] 6400 [id number] [place] 08:30:00 09:00:[address] [id number] [facility] [id number] 2021-10-23 2021-10-24 Outpatient [facility] [id number] [facility] 14:21:00 05:59:[address] 2021-10-23 2021-10-23 Outpatient ANA MORILLO [facility] MED [id number] [facility] 08:21:00 23:59:00 2021-10-23 2021-10-23 Outpatient Ana Morillo [facility] [id number] 08:21:00 23:59:00 07 2021-10-13 2021-10-13 Telephone Tita Oneill [facility] 6400 1.2.840. 114 [id number] [place] 00:00:00 00:00:[address] [id number] Health [id number] 2021-06-11 2021-06-11 Office EMERALD Valerio 6400 [id number] [place] 10:54:20 11:09:[address] [id number] Health [id number] [id number] 2 2021-05-12 2021-05-12 EXT MHH OP Oderich, EXT MSRDP [id number] [place] 00:00:00 00:00:00 Jimbo LOCATION [id number] H ealth [id number] 2021-05-12 2021-05-12 EXT MH OP Oderich, EXT MSRDP [id number] [place] 00:00:00 00:00:00 Jimbo LOCATION [id number] H ealth [id number] 2021-05-08 2021-05-09 Outpatient [facility] [id number] Memoria 17:36:00 04:59:[address] 2021-05-08 2021-05-08 Outpatient IMAN [facility] [id number] [facility] 12:36:00 23:59:00 JIMBO 2021-05-08 2021-05-08 Outpatient Iman [facility] [id number] 12:36:00 23:59:00 Jimbo 06 Italo Xi E 2021-05-04 2021-05-04 EXT H OP Oderich, EXT MSRDP [id number] [place] 00:00:00 00:00:00 Jimbo LOCATION [id number] H ealth [id number] 2021-05-04 2021-05-04 EXT MHH OP Oderich, EXT MSRDP [id number] [place] 00:00:00 00:00:00 Jimbo LOCATION [id number] H ealth [id number] 2021-05-01 2021-05-01 Orders Tita Oneill [facility] 6400 1.2.840.11 [id number] [place] 00:00:00 00:00:[address] [id number] Health 9.2.7.2.686 [id number] 2 2021-05-01 2021-05-01 Telephone Tita Oneill [facility] 6400 1.2.840. 114 [id number] [place] 00:00:00 00:00:[address] [id number] Health [id number] [id number] 2021-04-30 2021-04-30 Outpatient Koudela_A [facility] [id number] [facility] 06:22:00 06:22:00 0729 Medical Group 2021-04-20 2021-04-26 Inpatient [facility] [id number] [facility] 15:44:00 17:40:00 [facility] 05 [facility] 2021-04-20 2021-04-26 Inpatient ODERIC, [facility] [id number] [facility] 10:44:00 12:40:00 JIMBO 2021-04-20 2021-04-26 [facility] [id number] 10:44:00 12:40:00 Jimbo 05 Italo Xi E 2021-04-20 2021-04-26 Outpatient Oderic, [facility] [id number] 10:44:00 12:40:00 Jimbo 05 Italo Xi E 2021-04-23 2021-04-23 EXT MH OP Burnazian, EXT MSRDP 1.2.840.11 [id number] [place] 00:00:00 00:00:00 Brandin G LOCATION [id number] Health [id number] [id number] 2021-04-232021-04-23 EXT MHH OP Bjorn, EXT MSRDP 1.2.840.11 [id number] [place] 00:00:00 00:00:00 Brandin G LOCATION [id number] Health 9.2.7.2.686 [id number] 2021-04-20 2021-04-20 Outpatient Emerald [facility] [id number] [place] 07:36:00 07:36:00 0719 Medical Group 2021-04-20 2021-04-20 EXT MHH OP Hemant Mccoy EXT MSRDP 1.2.840.1 [id number] [place] 00:00:00 00:00:00 LOCATION [id number] H ealth [id number] [id number] 2021-04-20 2021-04-20 EXT MHH OP David, EXT MSRDP 1.2.840.114 [id number] [place] 00:00:00 00:00:00 Flaco P LOCATION [id number] Health [id number] [id number] 2021-04-20 2021-04-20 EXT MHH OP Hemant Mccoy T EXT MSRDP 1.2.840.1 14 [id number] [place] 00:00:00 00:00:00 LOCATION [id number] H ealth [id number] [id number] 2021-04-20 2021-04-20 EXT MHH OP Frankie, EXT MSRDP 1.2.840.114 [id number] [place] 00:00:00 00:00:00 Flaco P LOCATION [id number] Health [id number] [id number] 2021-04-17 2021-04-17 Stacey [place]bin [facility] [place] - [id number] 21 [place] 00:00:00 00:00:00 Discovery Xavi 0716 da PA-C: [facility] - [address], [facility] [place] [address] , Ph. 2021-04-10 2021-04-16 Inpatient [facility] [id number] [facility] 18:59:12 01:00:[address] 2021-04-16 2021-04-16 Orders Ana Morillo UTP 6400 1.2.840.114 [id number] [place] 00:00:00 00:00:[address] [id number] Health [id number] [id number] 2 2021-04-12 2021-04-15 Inpatient E JESÚSJUAN FierroIM [facility] 7[address] [facility] 10:42:00 20:00:00 2021-04-10 2021-04-15 Outpatient SafJuan fierroim [facility] 298 [id number] 13:59:12 20:00:00 [place] [address] 2021-04-10 2021-04-10 Outpatient Laureano Henning [facility] 348 [id number] 13:59:12 13:59:12 [facility] 04 2021-04-09 2021-04-09 Orders Shanta Segura UTP 6400 [id number] [id number] [place] 00:00:00 00:00:[address] [id number] Health [id number] [id number] 2 2021-04-09 2021-04-09 [facility]T [facility] Laureano Henning EXT MSRDP 1.2.840.1 [id number] [place] 00:00:00 00:00:00 LOCATION [id number] H ealth [id number] [id number] 2021-03-28 2021-03-28 Outpatient BRIAN Billings SURG [id number] 1999 [facility] 05:04:00 05:04:[address] Results Test Description Test Time Test Comments Results Result Comments Source CHEM PANEL 2021-10-23 14:33:00 Test Item Value Reference Range Interpretation Comme nts POC Creatinine (test code = POC Creatinine) 1.0 0.5-1.4 [place] 695542-01-21 14:33:00 Test Item Value Reference Range Interpretation Comments eGFR (test code = eGFR) 79 [place] 695541-08-06 18:30:00 Test Item Value Reference Range Interpretation Comments POC Creatinine (test code = POC 0.8 0.5-1.4 Creatinine) [place] 695541-08-06 18:30:00 Test Item Value Reference Range Interpretation Comments eGFR (test code = eGFR) 94 [facility]2021-07-25 06:43:00 Test Item Value Reference Range Interpretation Comments Glucose Lvl (test code = Glucose Lvl) 115 70-99 [place] 695541-07-25 06:43:00 Test Item Value Reference Range Interpretation Comments BUN (test code = BUN) 30 7-22 [facility]2021-07-25 06:43:00 Test Item Value Reference Range Interpretation Comments Creatinine Lvl (test code = Creatinine 0.92 0.50-1.40 Lvl) [facility]2021-07-25 06:43:00 Test Item Value Reference Range Interpretation Comments Sodium Lvl (test code = Sodium Lvl) 131 135-145 [place] 695541-07-25 06:43:00 Test Item Value Reference Range Interpretation Comments Potassium Lvl (test code = Potassium 3.5 3.5-5.1 Lvl) [facility]2021-07-25 06:43:00 Test Item Value Reference Range Interpretation Comments Chloride Lvl (test code = Chloride Lvl) 100 95-109 [place] 695541-07-25 06:43:00 Test Item Value Reference Range Interpretation Comments CO2 (test code = CO2) 21 24-32 [place] 695541-07-25 06:43:00 Test Item Value Reference Range Interpretation Comments Calcium Lvl (test code = Calcium Lvl) 7.8 8.5-10.5 [place] 695541-07-25 06:43:00 Test Item Value Reference Range Interpretation Comments AGAP (test code = AGAP) 13.5 10.0-20.0 [place] 695541-07-25 06:43:00 Test Item Value Reference Range Interpretation Comments eGFR (test code = eGFR) 87 [place] 695541-07-25 06:43:00 Test Item Value Reference Range Interpretation Comments Magnesium Lvl (test code = Magnesium 2.4 1.8-2.4 Lvl) [facility]2021-07-25 06:43:00 Test Item Value Reference Range Interpretation Comments Phosphorus (test code = Phosphorus) 3.6 2.5-4.5 [facility]RnbdellCJJOTCZTHG0420-58-41 06:43:00 Test Item Value Reference Range Interpretation Comments WBC (test code = WBC) 10.1 3.7-10.4 [facility] CenterNlpvplhANCGHFOSZO6574-16-39 06:43:00 Test Item Value Reference Range Interpretation Comments RBC (test code = RBC) 2.85 4.70-6.10 [facility] CenterXotjjdfWMPXNTVNZF9701-15-53 06:43:00 Test Item Value Reference Range Interpretation Comments Hgb (test code = Hgb) 9.4 14.0-18.0 [facility] CenterQkkuuwrHUIZNNIOEQ2578-15-77 06:43:00 Test Item Value Reference Range Interpretation Comments Hct (test code = Hct) 27.1 42.0-54.0 [facility] CenterLfxlumlDAOHSLBMZI7535-62-48 06:43:00 Test Item Value Reference Range Interpretation Comments MCV (test code = MCV) 94.9 80.0-94.0 [facility] CenterRjqysemYQZJELMEKW7213-91-43 06:43:00 Test Item Value Reference Range Interpretation Comments MCH (test code = MCH) 32.8 pg 27.0-31.0 [facility] CenterOrycvstDSPWABMRHN8414-46-15 06:43:00 Test Item Value Reference Range Interpretation Comments MCHC (test code = MCHC) 34.6 32.0-36.0 [facility] CenterKiwvyhoQYWZGGCQKJ2377-82-89 06:43:00 Test Item Value Reference Range Interpretation Comments RDW (test code = RDW) 13.3 11.5-14.5 [place] 661471-07-25 06:43:00 Test Item Value Reference Range Interpretation Comments Platelet (test code = Platelet) 226 133-450 [facility] CenterDrbqfnyEMLFWKGHJS0820-36-92 06:43:00 Test Item Value Reference Range Interpretation Comments MPV (test code = MPV) 8.7 7.4-10.4 [facility] CenterKwjemyzYOTBDQDXTX1183-69-80 06:43:00 Test Item Value Reference Range Interpretation Comments Segs (test code = Segs) 72.4 45.0-75.0 [place] 661471-07-25 06:43:00 Test Item Value Reference Range Interpretation Comments Lymphocytes (test code = Lymphocytes) 12.8 20.0-40.0 [place] 661471-07-25 06:43:00 Test Item Value Reference Range Interpretation Comments Monocytes (test code = Monocytes) 12.2 2.0-12.0 [place] 661471-07-25 06:43:00 Test Item Value Reference Range Interpretation Comments Eosinophils (test code = 1.6 See_Comment [A utomated message] The Eosinophils) system which ge nerated this result tra nsmitted reference range : <=4.0. The reference r berny was not used to int erpret this result as normal/abnormal . [place] 661471-07-25 06:43:00 Test Item Value Reference Range Interpretation Comments Basophils (test code = 1.0 See_Comment [Aut omated message] The Basophils) system which ge nerated this result tra nsmitted reference range : <=1.0. The reference r berny was not used to int erpret this result as normal/abnormal . [place] 661471-07-25 06:43:00 Test Item Value Reference Range Interpretation Comments Neutrophils # (test code = Neutrophils 7.3 1.5-8.1 #) [place] 661471-07-25 06:43:00 Test Item Value Reference Range Interpretation Comments Lymphocytes # (test code = Lymphocytes 1.3 1.0-5.5 #) [place] 661471-07-25 06:43:00 Test Item Value Reference Range Interpretation Comments Monocytes # (test code 1.2 See_Comment [Aut omated message] The = Monocytes #) system which generated this result tra nsmitted reference range : <=0.8. The reference r berny was not used to int erpret this result as normal/abnormal . [place] 661471-07-25 06:43:00 Test Item Value Reference Range Interpretation Comments Eosinophils # (test code 0.2 See_Comment [A utomated message] The = Eosinophils #) system wh h generated this result tra nsmitted reference range : <=0.5. The reference r berny was not used to int erpret this result as normal/abnormal . [facility]JgrekunBIIMMGJUJL0604-17-40 06:43:00 Test Item Value Reference Range Interpretation Comments Basophils # (test code 0.1 See_Comment [Aut omated message] The = Basophils #) system which generated this result tra nsmitted reference range : <=0.2. The reference r berny was not used to int erpret this result as normal/abnormal . [facility]2021-07-24 09:12:00 Test Item Value Reference Range Interpretation Comments Phosphorus (test code = Phosphorus) 3.2 2.5-4.5 [place] 695541-07-24 09:12:00 Test Item Value Reference Range Interpretation Comments Magnesium Lvl (test code = Magnesium 2.3 1.8-2.4 Lvl) [place] 695541-07-24 09:12:00 Test Item Value Reference Range Interpretation Comments Glucose Lvl (test code = Glucose Lvl) 115 70-99 [facility]2021-07-24 09:12:00 Test Item Value Reference Range Interpretation Comments BUN (test code = BUN) 27 7-22 [place] 695541-07-24 09:12:00 Test Item Value Reference Range Interpretation Comments Creatinine Lvl (test code = Creatinine 0.90 0.50-1.40 Lvl) [place] 695541-07-24 09:12:00 Test Item Value Reference Range Interpretation Comments Sodium Lvl (test code = Sodium Lvl) 131 135-145 [place] 695541-07-24 09:12:00 Test Item Value Reference Range Interpretation Comments Potassium Lvl (test code = Potassium 3.7 3.5-5.1 Lvl) [place] 695541-07-24 09:12:00 Test Item Value Reference Range Interpretation Comments Chloride Lvl (test code = Chloride Lvl) 101 95-109 [place] 695541-07-24 09:12:00 Test Item Value Reference Range Interpretation Comments CO2 (test code = CO2) 21 24-32 [place] 695541-07-24 09:12:00 Test Item Value Reference Range Interpretation Comments Calcium Lvl (test code = Calcium Lvl) 8.1 8.5-10.5 [place] 695541-07-24 09:12:00 Test Item Value Reference Range Interpretation Comments AGAP (test code = AGAP) 12.7 10.0-20.0 [facility]2021-07-24 09:12:00 Test Item Value Reference Range Interpretation Comments eGFR (test code = eGFR) 89 [facility] CenterKvrevsnIJAXLUXTUG8412-90-13 09:12:00 Test Item Value Reference Range Interpretation Comments WBC (test code = WBC) 11.0 3.7-10.4 [place] 661471-07-24 09:12:00 Test Item Value Reference Range Interpretation Comments RBC (test code = RBC) 2.87 4.70-6.10 [place] 661471-07-24 09:12:00 Test Item Value Reference Range Interpretation Comments Hgb (test code = Hgb) 9.4 14.0-18.0 [place] 661471-07-24 09:12:00 Test Item Value Reference Range Interpretation Comments Hct (test code = Hct) 26.9 42.0-54.0 [place] 661471-07-24 09:12:00 Test Item Value Reference Range Interpretation Comments MCV (test code = MCV) 93.9 80.0-94.0 [place] 661471-07-24 09:12:00 Test Item Value Reference Range Interpretation Comments MCH (test code = MCH) 32.9 pg 27.0-31.0 [facility] CenterWlhovleSTKOIHUMJG4679-97-20 09:12:00 Test Item Value Reference Range Interpretation Comments MCHC (test code = MCHC) 35.0 32.0-36.0 [place] 661471-07-24 09:12:00 Test Item Value Reference Range Interpretation Comments RDW (test code = RDW) 13.7 11.5-14.5 [place] 661471-07-24 09:12:00 Test Item Value Reference Range Interpretation Comments Platelet (test code = Platelet) 199 133-450 [facility] CenterCredvanHHCKWDOUHR3136-90-89 09:12:00 Test Item Value Reference Range Interpretation Comments MPV (test code = MPV) 8.8 7.4-10.4 [place] 661471-07-24 09:12:00 Test Item Value Reference Range Interpretation Comments Segs (test code = Segs) 77.0 45.0-75.0 [facility] CenterKxsvnzdEGEZYAUABU5441-20-41 09:12:00 Test Item Value Reference Range Interpretation Comments Lymphocytes (test code = Lymphocytes) 11.3 20.0-40.0 [facility] CenterNsunnpyIOMTGBLXRI6204-51-23 09:12:00 Test Item Value Reference Range Interpretation Comments Monocytes (test code = Monocytes) 10.6 2.0-12.0 [facility] CenterUukxgrdHPRTZMFWZO3382-30-88 09:12:00 Test Item Value Reference Range Interpretation Comments Eosinophils (test code = 0.7 See_Comment [A utomated message] The Eosinophils) system which ge nerated this result tra nsmitted reference range : <=4.0. The reference r berny was not used to int erpret this result as normal/abnormal . [facility] CenterOqmzczkZJTALBMZQM8986-34-05 09:12:00 Test Item Value Reference Range Interpretation Comments Basophils (test code = 0.4 See_Comment [Aut omated message] The Basophils) system which ge nerated this result tra nsmitted reference range : <=1.0. The reference r berny was not used to int erpret this result as normal/abnormal . [facility] CenterJassgjxMZHPAKBKSI2611-98-23 09:12:00 Test Item Value Reference Range Interpretation Comments Neutrophils # (test code = Neutrophils 8.5 1.5-8.1 #) [facility] CenterWdvyqwdCKSGAINNNA5724-19-62 09:12:00 Test Item Value Reference Range Interpretation Comments Lymphocytes # (test code = Lymphocytes 1.2 1.0-5.5 #) [facility] CenterCfhlqkxMHVOJRDNPQ6608-46-06 09:12:00 Test Item Value Reference Range Interpretation Comments Monocytes # (test code 1.2 See_Comment [Aut omated message] The = Monocytes #) system which generated this result tra nsmitted reference range : <=0.8. The reference r berny was not used to int erpret this result as normal/abnormal . [facility] CenterCmdihulJSKKAOYFOW2676-10-00 09:12:00 Test Item Value Reference Range Interpretation Comments Eosinophils # (test code 0.1 See_Comment [A utomated message] The = Eosinophils #) system whic h generated this result tra nsmitted reference range : <=0.5. The reference r berny was not used to int erpret this result as normal/abnormal . [facility]DsnuimaNIQXJNQOUQ7059-64-20 09:12:00 Test Item Value Reference Range Interpretation Comments Vancomycin AUC (test code = Vancomycin 23.0 AUC) [place] 695541-07-23 09:23:00 Test Item Value Reference Range Interpretation Comments Procalcitonin Lvl (test 0.09 See_Comment [Au tomated message] code = Procalcitonin Lvl) Th e system which generated this result transmitted ref erence range: <=0.10. The reference range was not used to interpr et this result as normal/abnormal . [place] 695541-07-23 09:23:00 Test Item Value Reference Range Interpretation Comments Phosphorus (test code = Phosphorus) 3.2 2.5-4.5 [place] 695541-07-23 09:23:00 Test Item Value Reference Range Interpretation Comments Magnesium Lvl (test code = Magnesium 2.4 1.8-2.4 Lvl) [place] 695541-07-23 09:23:00 Test Item Value Reference Range Interpretation Comments Glucose Lvl (test code = Glucose Lvl) 103 70-99 [place] 695541-07-23 09:23:00 Test Item Value Reference Range Interpretation Comments BUN (test code = BUN) 29 7-22 [place] 695541-07-23 09:23:00 Test Item Value Reference Range Interpretation Comments Creatinine Lvl (test code = Creatinine 0.98 0.50-1.40 Lvl) [place] 695541-07-23 09:23:00 Test Item Value Reference Range Interpretation Comments Sodium Lvl (test code = Sodium Lvl) 131 135-145 [place] 695541-07-23 09:23:00 Test Item Value Reference Range Interpretation Comments Potassium Lvl (test code = Potassium 3.8 3.5-5.1 Lvl) [facility] [id number] 09:23:00 Test Item Value Reference Range Interpretation Comments Chloride Lvl (test code = Chloride Lvl) 100 95-109 [place] 695541-07-23 09:23:00 Test Item Value Reference Range Interpretation Comments CO2 (test code = CO2) 20 24-32 [place] 695541-07-23 09:23:00 Test Item Value Reference Range Interpretation Comments Calcium Lvl (test code = Calcium Lvl) 8.5 8.5-10.5 [facility]2021-07-23 09:23:00 Test Item Value Reference Range Interpretation Comments AGAP (test code = AGAP) 14.8 10.0-20.0 [place] 695541-07-23 09:23:00 Test Item Value Reference Range Interpretation Comments eGFR (test code = eGFR) 80 [facility] CenterVnauhegCSKKCJUIUV8636-63-60 09:23:00 Test Item Value Reference Range Interpretation Comments WBC (test code = WBC) 16.0 3.7-10.4 [place] 661471-07-23 09:23:00 Test Item Value Reference Range Interpretation Comments RBC (test code = RBC) 3.23 4.70-6.10 [place] 661471-07-23 09:23:00 Test Item Value Reference Range Interpretation Comments Hgb (test code = Hgb) 10.6 14.0-18.0 [place] 661471-07-23 09:23:00 Test Item Value Reference Range Interpretation Comments Hct (test code = Hct) 30.6 42.0-54.0 [place] 661471-07-23 09:23:00 Test Item Value Reference Range Interpretation Comments MCV (test code = MCV) 94.8 80.0-94.0 [facility] CenterCsbppbcOIXRGCXXXK2704-12-75 09:23:00 Test Item Value Reference Range Interpretation Comments MCH (test code = MCH) 32.8 pg 27.0-31.0 [place] 661471-07-23 09:23:00 Test Item Value Reference Range Interpretation Comments MCHC (test code = MCHC) 34.7 32.0-36.0 [place] 661471-07-23 09:23:00 Test Item Value Reference Range Interpretation Comments RDW (test code = RDW) 13.7 11.5-14.5 [place] 661471-07-23 09:23:00 Test Item Value Reference Range Interpretation Comments Platelet (test code = Platelet) 201 133-450 [place] 661471-07-23 09:23:00 Test Item Value Reference Range Interpretation Comments MPV (test code = MPV) 8.6 7.4-10.4 [place] 661471-07-23 09:23:00 Test Item Value Reference Range Interpretation Comments RBC Morph (test code = Normal (04/24/21 4:23 RBC Morph) AM) [place] 661471-07-23 09:23:00 Test Item Value Reference Range Interpretation Comments Plt Morph (test code = Normal (04/24/21 4:23 Plt Morph) AM) [facility] CenterYmldudlGBUQCYXUIH3096-22-92 09:23:00 Test Item Value Reference Range Interpretation Comments Segs (test code = Segs) 79.4 45.0-75.0 [place] 661471-07-23 09:23:00 Test Item Value Reference Range Interpretation Comments Lymphocytes (test code = Lymphocytes) 8.6 20.0-40.0 [place] 661471-07-23 09:23:00 Test Item Value Reference Range Interpretation Comments Monocytes (test code = Monocytes) 11.4 2.0-12.0 [place] 661471-07-23 09:23:00 Test Item Value Reference Range Interpretation Comments Eosinophils (test code = 0.1 See_Comment [A utomated message] The Eosinophils) system which ge nerated this result tra nsmitted reference range : <=4.0. The reference r berny was not used to int erpret this result as normal/abnormal . [facility] CenterJlpudowTTMWOJSOZN7010-93-14 09:23:00 Test Item Value Reference Range Interpretation Comments Basophils (test code = 0.5 See_Comment [Aut omated message] The Basophils) system which ge nerated this result tra nsmitted reference range : <=1.0. The reference r berny was not used to int erpret this result as normal/abnormal . [facility] CenterLkazwgnPNTLMNXICF9406-72-62 09:23:00 Test Item Value Reference Range Interpretation Comments Neutrophils # (test code = Neutrophils 12.7 1.5-8.1 #) [place] [address]1471-07-23 09:23:00 Test Item Value Reference Range Interpretation Comments Lymphocytes # (test code = Lymphocytes 1.4 1.0-5.5 #) [facility] CenterHxzwowyZFUDJNSOGH4122-24-34 09:23:00 Test Item Value Reference Range Interpretation Comments Monocytes # (test code 1.8 See_Comment [Aut omated message] The = Monocytes #) system which generated this result tra nsmitted reference range : <=0.8. The reference r berny was not used to int erpret this result as normal/abnormal . [facility] HbuuffwEHPORXODYN6108-44-07 09:23:00 Test Item Value Reference Range Interpretation Comments Basophils # (test code 0.1 See_Comment [Aut omated message] The = Basophils #) system which generated this result tra nsmitted reference range : <=0.2. The reference r berny was not used to int erpret this result as normal/abnormal . [facility]lands[facility]: [id number] 09:23:00 Test Item Value Reference Range Interpretation Comments Culture: Urine (test code = No Growth Culture: Urine) [facility] AND [id number] 19:29:00 Test Item Value Reference Range Interpretation Comments UA Color (test code = Yellow *NA*(04/23/21 UA Color) 2:29 PM) [facility] AND [id number] 19:29:00 Test Item Value Reference Range Interpretation Comments UA Turbidity (test code Slight *ABN*(04/23/21 = UA Turbidity) 2:29 PM) [facility] AND [id number] 19:29:00 Test Item Value Reference Range Interpretation Comments UA Spec Grav (test code = UA Spec 1.015 1 Grav) [facility] AND [id number] 19:29:00 Test Item Value Reference Range Interpretation Comments UA pH (test code = UA pH) 5.0 1 5.0-8.0 [facility] AND [id number] 19:29:00 Test Item Value Reference Range Interpretation Comments UA Protein (test code = UA Negative mg/dL Protein) [facility] AND [id number] 19:29:00 Test Item Value Reference Range Interpretation Comments UA Glucose (test code = UA Negative mg/dL Glucose) [facility] AND [id number] 19:29:00 Test Item Value Reference Range Interpretation Comments UA Ketones (test code = UA Negative mg/dL Ketones) [facility] AND [id number] 19:29:00 Test Item Value Reference Range Interpretation Comments UA Bili (test code = Negative *NA*(04/23/21 UA Bili) 2:29 PM) [facility] [id number] 19:29:00 Test Item Value Reference Range Interpretation Comments UA Blood (test code = Negative (04/23/21 2:29 UA Blood) PM) [facility] [id number] 19:29:00 Test Item Value Reference Range Interpretation Comments UA Urobilinogen (test code = UA no gt 0.1-1.0 Urobilinogen) [facility] [id number] 19:29:00 Test Item Value Reference Range Interpretation Comments UA Nitrite (test code Negative (04/23/21 2:29 = UA Nitrite) PM) [facility] [id number] 19:29:00 Test Item Value Reference Range Interpretation Comments UA Leuk Est (test Negative (04/23/21 2:29 code = UA Leuk Est) PM) [facility] [id number] 19:29:00 Test Item Value Reference Range Interpretation Comments UA Sq Epi (test code = UA Sq Occasional /LPF Epi) [facility] [id number] 19:29:00 Test Item Value Reference Range Interpretation Comments UA WBC (test code = 1 See_Comment [Automa kathy message] The UA WBC) system which ge nerated this result transmit kathy reference range : <=5. The reference range was not used to interpr et this result as all l/abnormal. [facility] [id number] 19:29:00 Test Item Value Reference Range Interpretation Comments UA RBC (test code = 2 See_Comment [Automa kathy message] The UA RBC) system which ge nerated this result transmit kathy reference range : <=2. The reference range was not used to interpr et this result as all l/abnormal. [facility] [id number] 19:29:00 Test Item Value Reference Range Interpretation Comments UA Bacteria (test code = UA Occasional /HPF Bacteria) [facility] [id number] 19:29:00 Test Item Value Reference Range Interpretation Comments UA Mucus (test code = UA Mucus) Few /LPF [facility] [id number] 19:29:00 Test Item Value Reference Range Interpretation Comments UA Carmen Yeast (test code = UA Occasional /HPF Carmen Yeast) [facility] [id number] 19:29:00 Test Item Value Reference Range Interpretation Comments UA Sperm (test code = UA Occasional /HPF Sperm) [facility] CenterDalrhkwLUPMRNFKJB6756-67-49 09:21:00 Test Item Value Reference Range Interpretation Comments Eosinophils # (test code 0.1 See_Comment [A utomated message] The = Eosinophils #) system whic h generated this result tra nsmitted reference range : <=0.5. The reference r berny was not used to int erpret this result as normal/abnormal . [facility] CenterCwpgwxmLRGCJCDYDG8800-02-12 09:21:00 Test Item Value Reference Range Interpretation Comments Basophils # (test code 0.1 See_Comment [Aut omated message] The = Basophils #) system which generated this result tra nsmitted reference range : <=0.2. The reference r berny was not used to int erpret this result as normal/abnormal . [facility] CenterUtxkecwDBNMKBBZYN1091-02-45 08:00:00 Test Item Value Reference Range Interpretation Comments RBC Morph (test code = Normal (04/22/21 3:00 RBC Morph) AM) [facility] CenterIntlqedFDHQQDMOMY4579-27-42 08:00:00 Test Item Value Reference Range Interpretation Comments Plt Morph (test code = Normal (04/22/21 3:00 Plt Morph) AM) [place] [address]-07-21 08:00:00 Test Item Value Reference Range Interpretation Comments Bands (test code = 0.0 See_Comment [Automat ed message] The Bands) system which ge nerated this result transmit kathy reference range : <=11.0. The reference r berny was not used to interpr et this result as all l/abnormal. [facility] CenterSiwyliyNCMGZHRHPA7010-73-11 08:00:00 Test Item Value Reference Range Interpretation Comments Atypical Lymphs (test code = Atypical 0.0 Lymphs) [place] [address]1471-07-21 08:00:00 Test Item Value Reference Range Interpretation Comments PTT (test code = PTT) 32.8 s 22.9-35.8 [place] [address]-07-21 08:00:00 Test Item Value Reference Range Interpretation Comments PT (test code = PT) 15.4 s 12.0-14.7 [place] [address]1471-07-21 08:00:00 Test Item Value Reference Range Interpretation Comments INR (test code = INR) 1.24 1 0.85-1.17 [facility]GmwsysxCNJHNYTDGH0957-13-67 15:02:00 Test Item Value Reference Range Interpretation Comments Coronavirus (COVID-19) Not Detected (04/21/21 GUSTABO (test code = 10:02 AM) Coronavirus (COVID-19) GUSTABO) [facility] HospitalCwhoaaiBMTHNAKMNO3966-04-38 05:20:00 Test Item Value Reference Range Interpretation Comments PTT (test code = PTT) 29.8 s 22.9-35.8 [facility] ResourcesJrhcqqyEUGTXJHGPD6225-67-76 05:20:00 Test Item Value Reference Range Interpretation Comments PT (test code = PT) 15.1 s 12.0-14.7 [facility] HospitalJbzgaevVMSQFPHAEQ8921-22-49 05:20:00 Test Item Value Reference Range Interpretation Comments INR (test code = INR) 1.21 1 0.85-1.17 [facility]ARDIAC [id number] 05:12:00 Test Item Value Reference Range Interpretation Comments Troponin-I (test code no gt See_Comment [Auto mated message] The = Troponin-I) system which g enerated this result transmit kathy reference range : <=0.40. The reference r berny was not used to interpr et this result as all l/abnormal. [facility] CenterCfxbezjQVZIXJFVHC9715-65-30 05:12:00 Test Item Value Reference Range Interpretation Comments Bands (test code = 0.0 See_Comment [Automat ed message] The Bands) system which ge nerated this result transmit kathy reference range : <=11.0. The reference r berny was not used to interpr et this result as all l/abnormal. [facility] CenterHjqzsblHQWYHVDDFH2459-64-24 05:12:00 Test Item Value Reference Range Interpretation Comments Atypical Lymphs (test code = Atypical 0.0 Lymphs) [facility] CenterFbwehviJFUUQHXULP8004-00-44 05:12:00 Test Item Value Reference Range Interpretation Comments Plt Morph (test code = Normal (04/21/21 12:12 Plt Morph) AM) [facility]PARATHYROID [id number] 05:12:00 Test Item Value Reference Range Interpretation Comments Ca Ion WB (test code = Ca Ion WB) 1.12 1.05-1.25 [facility] [id number] 05:12:00 Test Item Value Reference Range Interpretation Comments Ca Norm WB (test code = Ca Norm WB) 1.10 1.05-1.25 [facility] ResourcesannCARDIAC [id number] 02:04:00 Test Item Value Reference Range Interpretation Comments Troponin-I (test code no gt See_Comment [Auto mated message] The = Troponin-I) system which g enerated this result transmit kathy reference range : <=0.40. The reference r berny was not used to interpr et this result as all l/abnormal. [facility]landsDhpnmswTXHIKZBAKM0578-76-19 23:12:00 Test Item Value Reference Range Interpretation Comments PTT (test code = PTT) 32.5 s 22.9-35.8 [id number] 23:12:00 Test Item Value Reference Range Interpretation Comments PT (test code = PT) 15.1 s 12.0-14.7 [facility] ResourcesPaewveiLIQBUTYCMA1206-88-75 23:12:00 Test Item Value Reference Range Interpretation Comments INR (test code = INR) 1.21 1 0.85-1.17 [facility]PARLENOX HILL HOSPITALROID [id number] 23:12:00 Test Item Value Reference Range Interpretation Comments Ca Ion WB (test code = Ca Ion WB) 1.01 1.05-1.25 [facility]wayRO[facility] [id number] 23:12:00 Test Item Value Reference Range Interpretation Comments Ca Norm WB (test code = Ca Norm WB) 0.99 1.05-1.25 [facility]landsEn[facility] BANK [id number] 19:23:00 Test Item Value Reference Range Interpretation Comments BB Note (test code = Result Note 5(04/20/21 BB Note) 2:23 PM) [facility] ResourcesCatchpoint Systems BANK [id number] 17:00:00 Test Item Value Reference Range Interpretation Comments RBC product (test code Product available = RBC product) (04/20/21 12:00 PM) [facility]landsGamblino [id number] 17:00:00 Test Item Value Reference Range Interpretation Comments Platelet product (test Product available code = Platelet (04/20/21 12:00 PM) product) [facility]landsGamblino [id number] 17:00:00 Test Item Value Reference Range Interpretation Comments FFP product (test code Product available = FFP product) (04/20/21 12:00 PM) [facility] [employer] [id number] 16:30:52 Test Item Value Reference Range Interpretation Comments B/C Ratio (test code = B/C Ratio) 14 1 6-25 [facility] ResourcesCall Britannia [id number] 16:30:52 Test Item Value Reference Range Interpretation Comments ALT (test code = ALT) 170 See_Comment [Auto mated message] The system which ge nerated this result transmit kathy reference range : <=65. The reference range was not used to interpr et this result as all l/abnormal. [facility] [employer] [id number] 16:30:52 Test Item Value Reference Range Interpretation Comments Albumin Lvl (test code = Albumin Lvl) 3.7 3.5-5.0 [facility] [employer] [id number] 16:30:52 Test Item Value Reference Range Interpretation Comments Alk Phos (test code = Alk Phos) 81 39-136 [facility] [employer] [id number] 16:30:52 Test Item Value Reference Range Interpretation Comments Bili Total (test code = Bili Total) 0.2 0.2-1.3 [facility] [employer] [id number] 16:30:52 Test Item Value Reference Range Interpretation Comments Total Protein (test code = Total 7.9 6.4-8.4 Protein) [facility] [employer] [id number] 16:30:52 Test Item Value Reference Range Interpretation Comments AST (test code = AST) 144 See_Comment [Auto mated message] The system which ge nerated this result transmit kathy reference range : <=37. The reference range was not used to interpr et this result as all l/abnormal. [facility] [id number] 16:30:52 Test Item Value Reference Range Interpretation Comments Globulin (test code = Globulin) 4.2 2.7-4.2 [facility] [employer] [id number] 16:30:52 Test Item Value Reference Range Interpretation Comments A/G Ratio (test code = A/G Ratio) 0.9 1 0.7-1.6 [facility] [employer] [id number] 16:15:00 Test Item Value Reference Range Interpretation Comments ABO/Rh (test code = ABO/Rh) O POS [facility] BANK [id number] 16:15:00 Test Item Value Reference Range Interpretation Comments Antibody Scrn (test Positive 4(04/20/21 code = Antibody Scrn) 11:15 AM) [facility] Ag [Presence] in Respiratory specimen by Rapid [id number] 15:24:00 Test Item Value Reference Range Interpretation Comments SARS-CoV - 2 (test code = SARS-CoV - negative 2) [facility] [id number] 05:43:00 Test Item Value Reference Range Interpretation Comments Glucose Lvl (test code = Glucose Lvl) 100 70-99 [facility]2021-07-14 05:43:00 Test Item Value Reference Range Interpretation Comments BUN (test code = BUN) 25 7-22 [facility]2021-07-14 05:43:00 Test Item Value Reference Range Interpretation Comments Creatinine Lvl (test code = Creatinine 1.05 0.50-1.40 Lvl) [facility]2021-07-14 05:43:00 Test Item Value Reference Range Interpretation Comments Sodium Lvl (test code = Sodium Lvl) 134 135-145 [facility]2021-07-14 05:43:00 Test Item Value Reference Range Interpretation Comments Potassium Lvl (test code = Potassium 4.5 3.5-5.1 Lvl) [facility]2021-07-14 05:43:00 Test Item Value Reference Range Interpretation Comments Chloride Lvl (test code = Chloride Lvl) 103 95-109 [facility]2021-07-14 05:43:00 Test Item Value Reference Range Interpretation Comments CO2 (test code = CO2) 23 24-32 [facility]2021-07-14 05:43:00 Test Item Value Reference Range Interpretation Comments Calcium Lvl (test code = Calcium Lvl) 9.1 8.5-10.5 [facility]2021-07-14 05:43:00 Test Item Value Reference Range Interpretation Comments AGAP (test code = AGAP) 12.5 10.0-20.0 [facility]2021-07-14 05:43:00 Test Item Value Reference Range Interpretation Comments eGFR (test code = eGFR) 74 [place] 661471-07-14 05:43:00 Test Item Value Reference Range Interpretation Comments Segs (test code = Segs) 66.2 45.0-75.0 [place] 661471-07-14 05:43:00 Test Item Value Reference Range Interpretation Comments Lymphocytes (test code = Lymphocytes) 14.4 20.0-40.0 [place] [address]1471-07-14 05:43:00 Test Item Value Reference Range Interpretation Comments Monocytes (test code = Monocytes) 15.8 2.0-12.0 [place] 661471-07-14 05:43:00 Test Item Value Reference Range Interpretation Comments Eosinophils (test code = 2.4 See_Comment [A utomated message] The Eosinophils) system which ge nerated this result tra nsmitted reference range : <=4.0. The reference r berny was not used to int erpret this result as normal/abnormal . [place] 661471-07-14 05:43:00 Test Item Value Reference Range Interpretation Comments Basophils (test code = 1.2 See_Comment [Aut omated message] The Basophils) system which ge nerated this result tra nsmitted reference range : <=1.0. The reference r berny was not used to int erpret this result as normal/abnormal . [place] [address]1471-07-14 05:43:00 Test Item Value Reference Range Interpretation Comments Neutrophils # (test code = Neutrophils 8.6 1.5-8.1 #) [place] [address]1471-07-14 05:43:00 Test Item Value Reference Range Interpretation Comments Lymphocytes # (test code = Lymphocytes 1.9 1.0-5.5 #) [place] [address]1471-07-14 05:43:00 Test Item Value Reference Range Interpretation Comments Monocytes # (test code 2.1 See_Comment [Aut omated message] The = Monocytes #) system which generated this result tra nsmitted reference range : <=0.8. The reference r berny was not used to int erpret this result as normal/abnormal . [place] [address]1471-07-14 05:43:00 Test Item Value Reference Range Interpretation Comments Eosinophils # (test code 0.3 See_Comment [A utomated message] The = Eosinophils #) system whic h generated this result tra nsmitted reference range : <=0.5. The reference r berny was not used to int erpret this result as normal/abnormal . [facility] CenterUztklriTQUHNUIGPR4079-48-09 05:43:00 Test Item Value Reference Range Interpretation Comments Basophils # (test code 0.2 See_Comment [Aut omated message] The = Basophils #) system which generated this result tra nsmitted reference range : <=0.2. The reference r berny was not used to int erpret this result as normal/abnormal . [facility] CenterGbzbdeoLHIQSNNDQA0405-61-21 05:43:00 Test Item Value Reference Range Interpretation Comments WBC (test code = WBC) 13.1 3.7-10.4 [facility] CenterSrxqvnkKWRPBHUZOU9049-05-29 05:43:00 Test Item Value Reference Range Interpretation Comments RBC (test code = RBC) 4.00 4.70-6.10 [facility] CenterRjkgyduYONCIQYBCU5362-70-52 05:43:00 Test Item Value Reference Range Interpretation Comments Hgb (test code = Hgb) 12.9 14.0-18.0 [facility] CenterHndmackMUUTEOMQKU3849-24-62 05:43:00 Test Item Value Reference Range Interpretation Comments Hct (test code = Hct) 36.9 42.0-54.0 [facility] CenterSxfnjkdKUIIRDMELL7563-90-13 05:43:00 Test Item Value Reference Range Interpretation Comments MCV (test code = MCV) 92.4 80.0-94.0 [facility] CenterBruxufkKKXMKISROK7257-87-26 05:43:00 Test Item Value Reference Range Interpretation Comments MCH (test code = MCH) 32.2 pg 27.0-31.0 [facility] CenterAgntkwdWQBCQQUUMI7956-17-18 05:43:00 Test Item Value Reference Range Interpretation Comments MCHC (test code = MCHC) 34.8 32.0-36.0 [facility] CenterKwtvolaSHMWDCUNZE2526-43-13 05:43:00 Test Item Value Reference Range Interpretation Comments RDW (test code = RDW) 13.5 11.5-14.5 [facility] CenterKiixqrvANQWWNCYFE1686-37-21 05:43:00 Test Item Value Reference Range Interpretation Comments Platelet (test code = Platelet) 181 133-450 [facility] CenterDauastuZFVUREMMFU2491-63-47 05:43:00 Test Item Value Reference Range Interpretation Comments MPV (test code = MPV) 9.4 7.4-10.4 [facility] ResourcesannMEROPENEM:SUSC:PT:ISOLATE:ORDQN:[id number] 10:06:00 Test Item Value Reference Range Interpretation Comments Culture: Urine (test 10,000 - 50,000 CFU/mL code = Culture: Proteus mirabilis 10,000 Urine) - 50,000 CFU/mL Klebsiella pneumoniae ssp pneumoniae [facility]MEROPENEM:SUSC:PT:ISOLATE:ORDQN:[id number] 10:06:00 Test Item Value Reference Range Interpretation Comments Klebsiella pneumoniae Klebsiella pneumoniae ssp pneumoniae (test ssp pneumoniae code = Klebsiella pneumoniae ssp pneumoniae) [facility]PT:ISOLATE:ORDQN:[id number] 10:06:00 Test Item Value Reference Range Interpretation Comments Proteus mirabilis (test Proteus mirabilis code = Proteus mirabilis) [facility] [id number] 07:23:00 Test Item Value Reference Range Interpretation Comments ABO/Rh (test code = ABO/Rh) O POS [facility] ResourcesCatchpoint Systems [facility] [id number] 07:23:00 Test Item Value Reference Range Interpretation Comments Antibody Scrn (test Positive (04/14/21 2:23 code = Antibody Scrn) AM) [facility]landsUs[facility] [id number] 07:23:00 Test Item Value Reference Range Interpretation Comments Glucose Lvl (test code = Glucose Lvl) 139 70-99 [facility]Us[facility] [id number] 07:23:00 Test Item Value Reference Range Interpretation Comments BUN (test code = BUN) 26 7-22 [facility]2021-07-13 07:23:00 Test Item Value Reference Range Interpretation Comments Creatinine Lvl (test code = Creatinine 1.20 0.50-1.40 Lvl) [facility]2021-07-13 07:23:00 Test Item Value Reference Range Interpretation Comments Sodium Lvl (test code = Sodium Lvl) 133 135-145 [facility]lands[facility] [id number] 07:23:00 Test Item Value Reference Range Interpretation Comments Potassium Lvl (test code = Potassium 3.9 3.5-5.1 Lvl) [place] 695541-07-13 07:23:00 Test Item Value Reference Range Interpretation Comments Chloride Lvl (test code = Chloride Lvl) 100 95-109 [place] 695541-07-13 07:23:00 Test Item Value Reference Range Interpretation Comments CO2 (test code = CO2) 26 24-32 [place] 695541-07-13 07:23:00 Test Item Value Reference Range Interpretation Comments Calcium Lvl (test code = Calcium Lvl) 8.8 8.5-10.5 [place] 695541-07-13 07:23:00 Test Item Value Reference Range Interpretation Comments AGAP (test code = AGAP) 10.9 10.0-20.0 [place] 695541-07-13 07:23:00 Test Item Value Reference Range Interpretation Comments eGFR (test code = eGFR) 63 [place] 661471-07-13 07:23:00 Test Item Value Reference Range Interpretation Comments Segs (test code = Segs) 67.6 45.0-75.0 [place] 661471-07-13 07:23:00 Test Item Value Reference Range Interpretation Comments Lymphocytes (test code = Lymphocytes) 15.2 20.0-40.0 [place] 661471-07-13 07:23:00 Test Item Value Reference Range Interpretation Comments Monocytes (test code = Monocytes) 14.6 2.0-12.0 [place] 661471-07-13 07:23:00 Test Item Value Reference Range Interpretation Comments Eosinophils (test code = 1.8 See_Comment [A utomated message] The Eosinophils) system which ge nerated this result tra nsmitted reference range : <=4.0. The reference r berny was not used to int erpret this result as normal/abnormal . [place] 661471-07-13 07:23:00 Test Item Value Reference Range Interpretation Comments Basophils (test code = 0.8 See_Comment [Aut omated message] The Basophils) system which ge nerated this result tra nsmitted reference range : <=1.0. The reference r berny was not used to int erpret this result as normal/abnormal . [place] 661471-07-13 07:23:00 Test Item Value Reference Range Interpretation Comments Neutrophils # (test code = Neutrophils 8.4 1.5-8.1 #) [place] [address]1471-07-13 07:23:00 Test Item Value Reference Range Interpretation Comments Lymphocytes # (test code = Lymphocytes 1.9 1.0-5.5 #) [place] [address]1471-07-13 07:23:00 Test Item Value Reference Range Interpretation Comments Monocytes # (test code 1.8 See_Comment [Aut omated message] The = Monocytes #) system which generated this result tra nsmitted reference range : <=0.8. The reference r berny was not used to int erpret this result as normal/abnormal . [place] 661471-07-13 07:23:00 Test Item Value Reference Range Interpretation Comments Eosinophils # (test code 0.2 See_Comment [A utomated message] The = Eosinophils #) system whic h generated this result tra nsmitted reference range : <=0.5. The reference r berny was not used to int erpret this result as normal/abnormal . [facility] CenterNjodppyLWDPORSGGJ4938-25-36 07:23:00 Test Item Value Reference Range Interpretation Comments Basophils # (test code 0.1 See_Comment [Aut omated message] The = Basophils #) system which generated this result tra nsmitted reference range : <=0.2. The reference r berny was not used to int erpret this result as normal/abnormal . [facility] CenterIzusstxEUWFSGPWYY4743-02-08 07:23:00 Test Item Value Reference Range Interpretation Comments WBC (test code = WBC) 12.5 3.7-10.4 [place] [address]-07-13 07:23:00 Test Item Value Reference Range Interpretation Comments RBC (test code = RBC) 3.97 4.70-6.10 [place] 661471-07-13 07:23:00 Test Item Value Reference Range Interpretation Comments Hgb (test code = Hgb) 12.9 14.0-18.0 [place] [address]-07-13 07:23:00 Test Item Value Reference Range Interpretation Comments Hct (test code = Hct) 37.2 42.0-54.0 [place] [address]1471-07-13 07:23:00 Test Item Value Reference Range Interpretation Comments MCV (test code = MCV) 93.7 80.0-94.0 [place] [address]1471-07-13 07:23:00 Test Item Value Reference Range Interpretation Comments MCH (test code = MCH) 32.4 pg 27.0-31.0 [place] [address]1471-07-13 07:23:00 Test Item Value Reference Range Interpretation Comments MCHC (test code = MCHC) 34.6 32.0-36.0 [place] [address]1471-07-13 07:23:00 Test Item Value Reference Range Interpretation Comments RDW (test code = RDW) 13.5 11.5-14.5 [place] 661471-07-13 07:23:00 Test Item Value Reference Range Interpretation Comments Platelet (test code = Platelet) 176 133-450 [place] 661471-07-13 07:23:00 Test Item Value Reference Range Interpretation Comments MPV (test code = MPV) 9.1 7.4-10.4 [facility]2021-07-12 06:05:00 Test Item Value Reference Range Interpretation Comments Glucose Lvl (test code = Glucose Lvl) 117 70-99 [facility]2021-07-12 06:05:00 Test Item Value Reference Range Interpretation Comments BUN (test code = BUN) 22 7-22 [facility]2021-07-12 06:05:00 Test Item Value Reference Range Interpretation Comments Creatinine Lvl (test code = Creatinine 1.19 0.50-1.40 Lvl) [facility]2021-07-12 06:05:00 Test Item Value Reference Range Interpretation Comments Sodium Lvl (test code = Sodium Lvl) 136 135-145 [place] 695541-07-12 06:05:00 Test Item Value Reference Range Interpretation Comments Potassium Lvl (test code = Potassium 4.0 3.5-5.1 Lvl) [place] 695541-07-12 06:05:00 Test Item Value Reference Range Interpretation Comments Chloride Lvl (test code = Chloride Lvl) 103 95-109 [place] 695541-07-12 06:05:00 Test Item Value Reference Range Interpretation Comments CO2 (test code = CO2) 26 24-32 [place] 695541-07-12 06:05:00 Test Item Value Reference Range Interpretation Comments Calcium Lvl (test code = Calcium Lvl) 9.4 8.5-10.5 [facility]2021-07-12 06:05:00 Test Item Value Reference Range Interpretation Comments AGAP (test code = AGAP) 11.0 10.0-20.0 [facility]2021-07-12 06:05:00 Test Item Value Reference Range Interpretation Comments eGFR (test code = eGFR) 64 [facility] CenterKmkhuzqZEWQKUCFXB0068-39-82 06:05:00 Test Item Value Reference Range Interpretation Comments WBC (test code = WBC) 12.5 3.7-10.4 [facility] CenterXisbtoyRBSRAWORVI6438-81-93 06:05:00 Test Item Value Reference Range Interpretation Comments RBC (test code = RBC) 4.14 4.70-6.10 [facility] CenterAzcnloqGZWFAAUYBV4220-54-42 06:05:00 Test Item Value Reference Range Interpretation Comments Hgb (test code = Hgb) 13.3 14.0-18.0 [facility] CenterZofrdgjMTXSCZBFPV2197-96-79 06:05:00 Test Item Value Reference Range Interpretation Comments Hct (test code = Hct) 38.6 42.0-54.0 [facility] CenterFeeldmtGCQJLNCJOQ4332-40-60 06:05:00 Test Item Value Reference Range Interpretation Comments MCV (test code = MCV) 93.1 80.0-94.0 [facility] CenterMadgvkhTDUHOAWLQN1654-56-98 06:05:00 Test Item Value Reference Range Interpretation Comments MCH (test code = MCH) 32.1 pg 27.0-31.0 [facility] CenterQpkyvagYXEQTZYIDF8570-97-62 06:05:00 Test Item Value Reference Range Interpretation Comments MCHC (test code = MCHC) 34.4 32.0-36.0 [facility] CenterKjitixgEZHDEQFSPA3771-41-54 06:05:00 Test Item Value Reference Range Interpretation Comments RDW (test code = RDW) 13.6 11.5-14.5 [facility] CenterOusgkeoIMTFFMYOZH8765-06-01 06:05:00 Test Item Value Reference Range Interpretation Comments Platelet (test code = Platelet) 205 133-450 [facility] CenterXgeylaiDAVCDZVZKM2135-78-37 06:05:00 Test Item Value Reference Range Interpretation Comments MPV (test code = MPV) 9.2 7.4-10.4 [facility] CenterBxlglxdUGFTKJOGPZ5090-85-56 06:05:00 Test Item Value Reference Range Interpretation Comments Segs (test code = Segs) 65.7 45.0-75.0 [facility] CenterFdyyvykGPUHZAUTCW0825-99-30 06:05:00 Test Item Value Reference Range Interpretation Comments Lymphocytes (test code = Lymphocytes) 18.2 20.0-40.0 [facility] CenterTdmcxqfESGKYWGBHF1540-49-63 06:05:00 Test Item Value Reference Range Interpretation Comments Monocytes (test code = Monocytes) 13.9 2.0-12.0 [facility] CenterZfprdrzESVRANNKLL1275-10-91 06:05:00 Test Item Value Reference Range Interpretation Comments Eosinophils (test code = 1.8 See_Comment [A utomated message] The Eosinophils) system which ge nerated this result tra nsmitted reference range : <=4.0. The reference r berny was not used to int erpret this result as normal/abnormal . [facility] CenterBwaifyxHOJGQSLAOL3094-42-86 06:05:00 Test Item Value Reference Range Interpretation Comments Basophils (test code = 0.4 See_Comment [Aut omated message] The Basophils) system which ge nerated this result tra nsmitted reference range : <=1.0. The reference r berny was not used to int erpret this result as normal/abnormal . [facility] CenterSqwmpbvRCCNNRLURE6480-50-36 06:05:00 Test Item Value Reference Range Interpretation Comments Neutrophils # (test code = Neutrophils 8.2 1.5-8.1 #) [facility] CenterTkwkxfxPSBWRNTBXY5313-37-20 06:05:00 Test Item Value Reference Range Interpretation Comments Lymphocytes # (test code = Lymphocytes 2.3 1.0-5.5 #) [facility] CenterVtzgvheCEZCLAHNVE3581-41-91 06:05:00 Test Item Value Reference Range Interpretation Comments Monocytes # (test code 1.7 See_Comment [Aut omated message] The = Monocytes #) system which generated this result tra nsmitted reference range : <=0.8. The reference r berny was not used to int erpret this result as normal/abnormal . [facility] CenterWernpusRPTCNKOMLP4257-33-69 06:05:00 Test Item Value Reference Range Interpretation Comments Eosinophils # (test code 0.2 See_Comment [A utomated message] The = Eosinophils #) system whic h generated this result tra nsmitted reference range : <=0.5. The reference r berny was not used to int erpret this result as normal/abnormal . [facility]landsYscvjgbFUNADNYQDV5522-01-49 06:05:00 Test Item Value Reference Range Interpretation Comments Basophils # (test code 0.1 See_Comment [Aut omated message] The = Basophils #) system which generated this result tra nsmitted reference range : <=0.2. The reference r berny was not used to int erpret this result as normal/abnormal . [facility] AND ZTFZQ5047-17-77 20:48:00 Test Item Value Reference Range Interpretation Comments UA Color (test code = Radha *ABN*(04/12/21 UA Color) 3:48 PM) [facility] AND [id number] 20:48:00 Test Item Value Reference Range Interpretation Comments UA Turbidity (test code Slight *ABN*(04/12/21 = UA Turbidity) 3:48 PM) [facility] AND [id number] 20:48:00 Test Item Value Reference Range Interpretation Comments UA Spec Grav (test code = UA Spec 1.027 1 Grav) [facility] AND [id number] 20:48:00 Test Item Value Reference Range Interpretation Comments UA pH (test code = UA pH) 5.0 1 5.0-8.0 [facility] AND [id number] 20:48:00 Test Item Value Reference Range Interpretation Comments UA Protein (test code = UA Protein) 30 mg/dL [facility] AND [id number] 20:48:00 Test Item Value Reference Range Interpretation Comments UA Glucose (test code = UA Negative mg/dL Glucose) [facility] AND [id number] 20:48:00 Test Item Value Reference Range Interpretation Comments UA Ketones (test code = UA Trace mg/dL Ketones) [facility] AND [id number] 20:48:00 Test Item Value Reference Range Interpretation Comments UA Bili (test code = Negative *NA*(04/12/21 UA Bili) 3:48 PM) [facility] AND [id number] 20:48:00 Test Item Value Reference Range Interpretation Comments UA Blood (test code = Negative (04/12/21 3:48 [facility]A Blood) PM) [facility] [id number] 20:48:00 Test Item Value Reference Range Interpretation Comments UA Urobilinogen (test code = UA 2.0 0.1-1.0 Urobilinogen) [facility] [id number] 20:48:00 Test Item Value Reference Range Interpretation Comments UA Nitrite (test code Negative (04/12/21 3:48 = UA Nitrite) PM) [facility] [id number] 20:48:00 Test Item Value Reference Range Interpretation Comments UA Leuk Est (test Negative (04/12/21 3:48 code = UA Leuk Est) PM) [facility] [id number] 20:48:00 Test Item Value Reference Range Interpretation Comments UA Sq Epi (test code = UA Sq Occasional /LPF Epi) [facility] [id number] 20:48:00 Test Item Value Reference Range Interpretation Comments UA WBC (test code = 8 See_Comment [Automa kathy message] The UA WBC) system which ge nerated this result transmit kathy reference range : <=5. The reference range was not used to interpr et this result as all l/abnormal. [facility] [id number] 20:48:00 Test Item Value Reference Range Interpretation Comments UA RBC (test code = 2 See_Comment [Automa kathy message] The UA RBC) system which ge nerated this result transmit kathy reference range : <=2. The reference range was not used to interpr et this result as all l/abnormal. [facility] [id number] 20:48:00 Test Item Value Reference Range Interpretation Comments UA Bacteria (test code = UA Occasional /HPF Bacteria) [facility] [id number] 20:48:00 Test Item Value Reference Range Interpretation Comments UA Mucus (test code = UA Mucus) Many /LPF [facility] [id number] 20:48:00 Test Item Value Reference Range Interpretation Comments UA Hyal Cast (test 2 See_Comment [Automat ed message] The code = UA Hyal Cast) system which generated this result transmit kathy reference range : <=2. The reference range was not used to interpr et this result as all l/abnormal. [facility]2021-07-11 13:20:00 Test Item Value Reference Range Interpretation Comments Total CK (test code = Total CK) 56 12-191 [facility] Resources[facility]inger.[facility] [id number] 13:20:00 Test Item Value Reference Range Interpretation Comments Troponin-I (test code no gt See_Comment [Auto mated message] The = Troponin-I) system which g enerated this result transmit kathy reference range : <=0.40. The reference r berny was not used to interpr et this result as all l/abnormal. [facility] [employer]2021-07-11 13:20:00 Test Item Value Reference Range Interpretation Comments Troponin-T (test code no gt See_Comment [Auto mated message] The = Troponin-T) system which g enerated this result transmit kathy reference range : <=0.100. The reference r berny was not used to interpr et this result as all l/abnormal. [facility] [employer]2021-07-11 09:09:00 Test Item Value Reference Range Interpretation Comments Total CK (test code = Total CK) 59 12-191 [facility] ResourcesTac[facility] [employer]2021-07-11 09:09:00 Test Item Value Reference Range Interpretation Comments Troponin-I (test code no gt See_Comment [Auto mated message] The = Troponin-I) system which g enerated this result transmit kathy reference range : <=0.40. The reference r berny was not used to interpr et this result as all l/abnormal. [facility] [employer]2021-07-11 09:09:00 Test Item Value Reference Range Interpretation Comments Troponin-T (test code no gt See_Comment [Auto mated message] The = Troponin-T) system which g enerated this result transmit kathy reference range : <=0.100. The reference r berny was not used to interpr et this result as all l/abnormal. [facility] QVPN2021-07-11 09:09:00 Test Item Value Reference Range Interpretation Comments Glucose Lvl (test code = Glucose Lvl) 110 70-99 [facility] QVPN2021-07-11 09:09:00 Test Item Value Reference Range Interpretation Comments BUN (test code = BUN) 15 7-22 [place] 695541-07-11 09:09:00 Test Item Value Reference Range Interpretation Comments Creatinine Lvl (test code = Creatinine 1.02 0.50-1.40 Lvl) [place] 695541-07-11 09:09:00 Test Item Value Reference Range Interpretation Comments Sodium Lvl (test code = Sodium Lvl) 138 135-145 [place] 695541-07-11 09:09:00 Test Item Value Reference Range Interpretation Comments Potassium Lvl (test code = Potassium 4.0 3.5-5.1 Lvl) [place] 695541-07-11 09:09:00 Test Item Value Reference Range Interpretation Comments Chloride Lvl (test code = Chloride Lvl) 105 95-109 [place] 695541-07-11 09:09:00 Test Item Value Reference Range Interpretation Comments CO2 (test code = CO2) 27 24-32 [place] 695541-07-11 09:09:00 Test Item Value Reference Range Interpretation Comments Calcium Lvl (test code = Calcium Lvl) 9.3 8.5-10.5 [place] 695541-07-11 09:09:00 Test Item Value Reference Range Interpretation Comments AGAP (test code = AGAP) 10.0 10.0-20.0 [place] 695541-07-11 09:09:00 Test Item Value Reference Range Interpretation Comments eGFR (test code = eGFR) 77 [place] 695541-07-11 09:09:00 Test Item Value Reference Range Interpretation Comments Magnesium Lvl (test code = Magnesium 2.2 1.8-2.4 Lvl) [place] 695541-07-11 09:09:00 Test Item Value Reference Range Interpretation Comments Phosphorus (test code = Phosphorus) 4.1 2.5-4.5 [place] 661471-07-11 09:09:00 Test Item Value Reference Range Interpretation Comments WBC (test code = WBC) 10.7 3.7-10.4 [place] 661471-07-11 09:09:00 Test Item Value Reference Range Interpretation Comments RBC (test code = RBC) 4.44 4.70-6.10 [place] [address]-07-11 09:09:00 Test Item Value Reference Range Interpretation Comments Hgb (test code = Hgb) 14.5 14.0-18.0 [facility]KbtopipXNHOPZDEAO2241-88-77 09:09:00 Test Item Value Reference Range Interpretation Comments Hct (test code = Hct) 41.9 42.0-54.0 [facility] CenterJhdbcjtLAUVBOEQWN3170-81-28 09:09:00 Test Item Value Reference Range Interpretation Comments MCV (test code = MCV) 94.5 80.0-94.0 [facility] CenterMollspmYLEBHJDLUJ6435-22-63 09:09:00 Test Item Value Reference Range Interpretation Comments MCH (test code = MCH) 32.8 pg 27.0-31.0 [facility] CenterMpxrogkVRWCPTQUXC1917-02-20 09:09:00 Test Item Value Reference Range Interpretation Comments MCHC (test code = MCHC) 34.7 32.0-36.0 [facility] CenterRaofdesSYRSHTURFP7644-41-89 09:09:00 Test Item Value Reference Range Interpretation Comments RDW (test code = RDW) 13.8 11.5-14.5 [facility] CenterAwoglenUPHDYSUFLW5624-82-54 09:09:00 Test Item Value Reference Range Interpretation Comments Platelet (test code = Platelet) 216 133-450 [facility] CenterHskwsllXMBVKRZVVW0796-10-67 09:09:00 Test Item Value Reference Range Interpretation Comments MPV (test code = MPV) 9.1 7.4-10.4 [facility] CenterUpcodjfTLTNARNNWN0539-30-92 09:09:00 Test Item Value Reference Range Interpretation Comments Segs (test code = Segs) 67.4 45.0-75.0 [facility] CenterMifykocJYJIKBFQKI5395-21-56 09:09:00 Test Item Value Reference Range Interpretation Comments Lymphocytes (test code = Lymphocytes) 17.7 20.0-40.0 [facility] CenterUqdxbevISLCVLDUHH0506-42-98 09:09:00 Test Item Value Reference Range Interpretation Comments Monocytes (test code = Monocytes) 11.6 2.0-12.0 [place] 661471-07-11 09:09:00 Test Item Value Reference Range Interpretation Comments Eosinophils (test code = 2.7 See_Comment [A utomated message] The Eosinophils) system which ge nerated this result tra nsmitted reference range : <=4.0. The reference r berny was not used to int erpret this result as normal/abnormal . [facility] CenterKcdvfwpBIPKGGKJJN1034-13-44 09:09:00 Test Item Value Reference Range Interpretation Comments Basophils (test code = 0.6 See_Comment [Aut omated message] The Basophils) system which ge nerated this result tra nsmitted reference range : <=1.0. The reference r berny was not used to int erpret this result as normal/abnormal . [facility] CenterUertebhCMMYFYRVDQ7705-49-96 09:09:00 Test Item Value Reference Range Interpretation Comments Neutrophils # (test code = Neutrophils 7.2 1.5-8.1 #) [facility] CenterIhxfcgwXYJDXCNKBE1392-28-35 09:09:00 Test Item Value Reference Range Interpretation Comments Lymphocytes # (test code = Lymphocytes 1.9 1.0-5.5 #) [facility] CenterKfnjahiDDCBOPQDYL8066-69-00 09:09:00 Test Item Value Reference Range Interpretation Comments Monocytes # (test code 1.2 See_Comment [Aut omated message] The = Monocytes #) system which generated this result tra nsmitted reference range : <=0.8. The reference r berny was not used to int erpret this result as normal/abnormal . [facility] CenterMhgkspkOLDKECRICG8759-58-92 09:09:00 Test Item Value Reference Range Interpretation Comments Eosinophils # (test code 0.3 See_Comment [A utomated message] The = Eosinophils #) system whic h generated this result tra nsmitted reference range : <=0.5. The reference r berny was not used to int erpret this result as normal/abnormal . [facility] CenterKoloizuPXSUPSYVOD2153-88-34 09:09:00 Test Item Value Reference Range Interpretation Comments Basophils # (test code 0.1 See_Comment [Aut omated message] The = Basophils #) system which generated this result tra nsmitted reference range : <=0.2. The reference r berny was not used to int erpret this result as normal/abnormal . [facility] [id number] 04:13:00 Test Item Value Reference Range Interpretation Comments Total CK (test code = Total CK) 66 12-191 [facility] [id number] 04:13:00 Test Item Value Reference Range Interpretation Comments Troponin-I (test code no gt See_Comment [Auto mated message] The = Troponin-I) system which g enerated this result transmit kathy reference range : <=0.40. The reference r berny was not used to interpr et this result as all l/abnormal. [facility] [id number] 04:13:00 Test Item Value Reference Range Interpretation Comments Troponin-T (test code no gt See_Comment [Auto mated message] The = Troponin-T) system which g enerated this result transmit kathy reference range : <=0.100. The reference r berny was not used to interpr et this result as all l/abnormal. [facility] [employer] [id number] 12:37:00 Test Item Value Reference Range Interpretation Comments ABO/Rh (test code = ABO/Rh) O POS [facility] [employer] [id number] 12:37:00 Test Item Value Reference Range Interpretation Comments Antibody Scrn (test Positive 5(04/11/21 code = Antibody Scrn) 7:37 AM) [facility] [employer] [id number] 12:37:00 Test Item Value Reference Range Interpretation Comments AB Int (test code = AB Int) Anti-E [facility] [employer] [id number] 12:37:00 Test Item Value Reference Range Interpretation Comments Path AB (test code Blood Bank Physician = Path AB) Service The patient is a 65-year old male with a history of AAA repaired in 2010 and prior 6-vessel CAB presenting with numbness to the extremities and admitted for possible repair of AAA. No recent transfusion history is noted in the EMR. An anti-E is detected in this patient s serum. This antibody is directed against the E (big E) antigen of the Rh blood group system. It is typically IgG in nature and forms in response to RBC sensitization via prior transfusion. Anti-E is considered a clinically significant antibody; it has been associated with hemolytic transfusion reactions. Should RBC transfusion be necessary, E-negative crossmatch-compatible blood will be issued. Little difficulty in obtaining compatible blood is anticipated since 70% of the donor population lacks the E-antigen. The patient s electronic medical record has been reviewed for relevant information. I have reviewed the test results and concur with the resident, Dr. Jade's, interpretation. CPT: 39135-ZW [facility] [employer] [id number] 12:37:00 Test Item Value Reference Range Interpretation Comments Glucose Lvl (test code = Glucose Lvl) 89 70-99 [facility]2021-07-10 12:37:00 Test Item Value Reference Range Interpretation Comments BUN (test code = BUN) 16 7-22 [facility]2021-07-10 12:37:00 Test Item Value Reference Range Interpretation Comments Creatinine Lvl (test code = Creatinine 1.13 0.50-1.40 Lvl) [facility]2021-07-10 12:37:00 Test Item Value Reference Range Interpretation Comments Sodium Lvl (test code = Sodium Lvl) 138 135-145 [facility]2021-07-10 12:37:00 Test Item Value Reference Range Interpretation Comments Potassium Lvl (test code = Potassium 4.1 3.5-5.1 Lvl) [facility]2021-07-10 12:37:00 Test Item Value Reference Range Interpretation Comments Chloride Lvl (test code = Chloride Lvl) 103 95-109 [facility]2021-07-10 12:37:00 Test Item Value Reference Range Interpretation Comments CO2 (test code = CO2) 28 24-32 [facility]2021-07-10 12:37:00 Test Item Value Reference Range Interpretation Comments Calcium Lvl (test code = Calcium Lvl) 9.1 8.5-10.5 [facility]2021-07-10 12:37:00 Test Item Value Reference Range Interpretation Comments AGAP (test code = AGAP) 11.1 10.0-20.0 [facility]2021-07-10 12:37:00 Test Item Value Reference Range Interpretation Comments eGFR (test code = eGFR) 68 [facility]2021-07-10 12:37:00 Test Item Value Reference Range Interpretation Comments Lactic Acid Lvl (test code = Lactic 1.0 0.5-2.2 Acid Lvl) [facility]2021-07-10 12:37:00 Test Item Value Reference Range Interpretation Comments Magnesium Lvl (test code = Magnesium 2.0 1.8-2.4 Lvl) [facility]2021-07-10 12:37:00 Test Item Value Reference Range Interpretation Comments Phosphorus (test code = Phosphorus) 2.4 2.5-4.5 [facility] CenterJdxzmubVUKQTTERIJ0865-65-94 12:37:00 Test Item Value Reference Range Interpretation Comments WBC (test code = WBC) 10.3 3.7-10.4 [facility] CenterNmldhnpJLVSMZUBYI7790-82-61 12:37:00 Test Item Value Reference Range Interpretation Comments RBC (test code = RBC) 4.52 4.70-6.10 [facility] CenterCamfhjvMBJTLNMZAS6543-43-72 12:37:00 Test Item Value Reference Range Interpretation Comments Hgb (test code = Hgb) 14.4 14.0-18.0 [facility] CenterGozvprgJBLBPEDHYW1134-23-90 12:37:00 Test Item Value Reference Range Interpretation Comments Hct (test code = Hct) 42.2 42.0-54.0 [facility] CenterGopgwcrLEXFAMGBCW9393-18-21 12:37:00 Test Item Value Reference Range Interpretation Comments MCV (test code = MCV) 93.3 80.0-94.0 [facility] CenterMvcbwzhBTFTPPQYLO0888-51-00 12:37:00 Test Item Value Reference Range Interpretation Comments MCH (test code = MCH) 32.0 pg 27.0-31.0 [facility] CenterLsrtehaAUJTZFUHWA5106-07-98 12:37:00 Test Item Value Reference Range Interpretation Comments MCHC (test code = MCHC) 34.3 32.0-36.0 [facility] CenterFvqgkjhSTJSRVEDNN7964-77-88 12:37:00 Test Item Value Reference Range Interpretation Comments RDW (test code = RDW) 13.5 11.5-14.5 [facility] CenterSfvkkhhKJQEPRJTAH0260-15-79 12:37:00 Test Item Value Reference Range Interpretation Comments Platelet (test code = Platelet) 206 133-450 [facility] CenterPiwjkfhBTVWHKVJOO7845-66-32 12:37:00 Test Item Value Reference Range Interpretation Comments MPV (test code = MPV) 9.6 7.4-10.4 [facility] CenterWspulemQYJRNUUZTR2458-34-97 12:37:00 Test Item Value Reference Range Interpretation Comments PT (test code = PT) 13.6 s 12.0-14.7 [facility] CenterVryitjnGRTHVXMVEY0270-70-99 12:37:00 Test Item Value Reference Range Interpretation Comments INR (test code = INR) 1.05 1 0.85-1.17 [facility] CenterCycfnzbLASRBZAECQ1265-10-80 12:37:00 Test Item Value Reference Range Interpretation Comments Fibrinogen Lvl (test code = Fibrinogen 300 230-510 Lvl) [facility] CenterQirpzkhDZONWEBNSJ3782-35-12 12:37:00 Test Item Value Reference Range Interpretation Comments PTT (test code = PTT) 27.6 s 22.9-35.8 [place] 661471-07-10 12:37:00 Test Item Value Reference Range Interpretation Comments Thrombin Time (test code = Thrombin 17.2 s 15.0-21.2 Time) [place] 661471-07-10 12:37:00 Test Item Value Reference Range Interpretation Comments D-Dimer (test code = D-Dimer) 0.72 [place] 661471-07-10 12:37:00 Test Item Value Reference Range Interpretation Comments Segs (test code = Segs) 65.7 45.0-75.0 [place] 661471-07-10 12:37:00 Test Item Value Reference Range Interpretation Comments Lymphocytes (test code = Lymphocytes) 17.8 20.0-40.0 [place] 661471-07-10 12:37:00 Test Item Value Reference Range Interpretation Comments Monocytes (test code = Monocytes) 11.5 2.0-12.0 [facility] CenterGuzoppmZKFFBFTERU2675-26-24 12:37:00 Test Item Value Reference Range Interpretation Comments Eosinophils (test code = 4.1 See_Comment [A utomated message] The Eosinophils) system which ge nerated this result tra nsmitted reference range : <=4.0. The reference r berny was not used to int erpret this result as normal/abnormal . [facility] CenterWjnktvwHEGMWOWQUK3604-81-47 12:37:00 Test Item Value Reference Range Interpretation Comments Basophils (test code = 0.9 See_Comment [Aut omated message] The Basophils) system which ge nerated this result tra nsmitted reference range : <=1.0. The reference r berny was not used to int erpret this result as normal/abnormal . [place] 661471-07-10 12:37:00 Test Item Value Reference Range Interpretation Comments Neutrophils # (test code = Neutrophils 6.8 1.5-8.1 #) [facility] CenterMcxlquzRKCGXCSZQS5452-19-30 12:37:00 Test Item Value Reference Range Interpretation Comments Lymphocytes # (test code = Lymphocytes 1.8 1.0-5.5 #) [facility] CenterXpjuudpYGLWFVGGPZ6515-97-85 12:37:00 Test Item Value Reference Range Interpretation Comments Monocytes # (test code 1.2 See_Comment [Aut omated message] The = Monocytes #) system which generated this result tra nsmitted reference range : <=0.8. The reference r berny was not used to int erpret this result as normal/abnormal . [facility] CenterSvkflscOUUAAURSIU7291-49-32 12:37:00 Test Item Value Reference Range Interpretation Comments Eosinophils # (test code 0.4 See_Comment [A utomated message] The = Eosinophils #) system whic h generated this result tra nsmitted reference range : <=0.5. The reference r berny was not used to int erpret this result as normal/abnormal . [facility] CenterZkhaxdcYLVALBMGAM2648-05-27 12:37:00 Test Item Value Reference Range Interpretation Comments Basophils # (test code 0.1 See_Comment [Aut omated message] The = Basophils #) system which generated this result tra nsmitted reference range : <=0.2. The reference r berny was not used to int erpret this result as normal/abnormal . [facility]FqrektbYYBPFIETTD2978-39-84 01:39:38 Test Item Value Reference Range Interpretation Comments Coronavirus (COVID-19) Not Detected (04/10/21 GUSTABO (test code = 8:39 PM) Coronavirus (COVID-19) GUSTABO) [facility]landsPxzvizrPPFZRWMLOK2406-48-45 21:04:00 Test Item Value Reference Range Interpretation Comments [facility] HIV 4th GEN (test Negative *NA*(04/10/21 code = [facility] HIV 4th 4:04 PM) GEN) [facility]landsXrjleiqSKOCMEZKCN5466-39-13 21:04:00 Test Item Value Reference Range Interpretation Comments Hep C Ab (test code = Hep C Ab) NON-REACTIVE [facility]landsYlgixvzPPMPSHATYY6499-35-15 21:04:00 Test Item Value Reference Range Interpretation Comments Hep Signal to Cut-Off (test code = Hep 0.02 1 Signal to Cut-Off) [facility] [id number] 20:21:55 Test Item Value Reference Range Interpretation Comments Total Protein (test code = Total 8.3 6.4-8.4 Protein) [facility] Resources[facility] [id number] 20:21:55 Test Item Value Reference Range Interpretation Comments Albumin Lvl (test code = Albumin Lvl) 4.2 3.5-5.0 [facility]2021-07-09 20:21:55 Test Item Value Reference Range Interpretation Comments ALANINE AMINOTRANSFERASE 31 See_Comment [A utomated message] (test code = ALANINE The sys tem which AMINOTRANSFERASE) generated this result transmitted ref erence range: <=65. Th e reference range was not used to int erpret this result as normal/abnormal . [place] 695541-07-09 20:21:55 Test Item Value Reference Range Interpretation Comments ASPARTATE TRANSAMINASE 24 See_Comment [Aut omated message] (test code = ASPARTATE The s ystem which TRANSAMINASE) generated this result transmitted ref erence range: <=37. Th e reference range was not used to interpr et this result as normal/abnormal . [place] 695541-07-09 20:21:55 Test Item Value Reference Range Interpretation Comments Alk Phos (test code = Alk Phos) 75 39-136 [facility] Resources[facility] [id number] 20:21:55 Test Item Value Reference Range Interpretation Comments Bili Total (test code = Bili Total) 0.4 0.2-1.3 [facility] [id number] 20:21:55 Test Item Value Reference Range Interpretation Comments Bili Direct (test code 0.1 See_Comment [Aut omated message] The = Bili Direct) system which generated this result tra nsmitted reference range : <=0.3. The reference r berny was not used to int erpret this result as all l/abnormal. [facility]lands[facility] [id number] 20:21:55 Test Item Value Reference Range Interpretation Comments Bili Indirect (test 0.3 See_Comment [Automa kathy message] The code = Bili Indirect) system which generated this result tra nsmitted reference range : <=1.0. The reference r berny was not used to int erpret this result as normal/abnormal . [facility]lands[facility] [id number] 20:21:55 Test Item Value Reference Range Interpretation Comments Globulin (test code = Globulin) 4.1 2.7-4.2 [facility]lands[facility] [id number] 20:21:55 Test Item Value Reference Range Interpretation Comments A/G Ratio (test code = A/G Ratio) 1.0 1 0.7-1.6 [facility] METABOLIC [id number] 06:14:00 Test Item Value Reference Range Interpretation Comments SODIUM (test code = 140 MMOL/L 137-145 N NA) POTASSIUM (test code = 3.7 MMOL/L 3.5-5.1 N K) CHLORIDE (test code = 100 MMOL/L 98-107 N CL) CARBON DIOXIDE (test 30 MMOL/L 22-30 N code = CO2) GLUCOSE (test code = 98 MG/DL 74-106 N GLU) BLOOD UREA NITROGEN 23 MG/DL 9-20 H (test code = BUN) GLOMERULAR FILTRATION > 60 Report ing units: RATE (test code = GFR) ml/mi n/1.73 m2 (Modified MDRD Formula)Referen ce Range: > or = 6 0 ml/min/1.73 m2 CREATININE (test code 0.90 MG/DL 0.66-1.25 N = CREAT) CALCIUM (test code = 9.6 MG/DL 8.4-10.2 N CA) LIPID PROFILE (CORONARY RISK)2021-03-28 06:14:00 Test Item Value Reference Range Interpretation Comments TRIGLYCERIDES (test 188 MG/DL TRIGLYCE RIDES code = TRIG) REFERENCE RANGE:Normal: < 150 mg/dLBorderline High: 150-199 mg/dLHi gh: 200-499 mg/dLVe ry High: >=500 mg/ dL CHOLESTEROL (test code 185 MG/DL <200 = CHOL) HDL CHOLESTEROL (test 59 MG/DL 40-59 N code = HDL) LIPOPROTEIN LDL (test 97 MG/DL 0-99 N OPTIM AL.........<100 code = LDL) mg/dLNEAR OPTIMAL/ABOVE OPTIMAL........ .100-12 9 mg/dL BORDERL INE HIGH.........13 0-159 mg/dL HIGH.........16 0-189 mg/dL VERY HIGH.........>/ = 190 mg/dL [id number] 06:14:00 Test Item Value Reference Range Interpretation Comments MAGNESIUM (test code = MAG) 1.9 MG/DL 1.6-2.3 N PROTHROMBIN [id number] 06:05:00 Test Item Value Reference Range Interpretation Comments PROTHROMBIN TIME 11.3 SECONDS 9.5-12.7 N PATIENT (test code = PTP) INTERNATIONAL NORMAL 1.0 0.86-1.14 N The INR is to be RATIO (test code = used only for INR) monitoring oral anticoagulantth erap y. INDICATION I NR VALUE ---- ---- ---- -------1. Prophylaxis, de ep venous thrombos is, including high risk surgery. 2.0 - 3.0 2. Prophylaxis, deep venous thrombosis, hip surgery, treatm ent for deep venous thrombosis or pulmonary prevention of systemic emboli sm in patients wit h valvular heart disease, atrial fibrillation, tissue heart va lve, or acute myocar dial infarction. 2.0 - 3.0 3. [employer] Supervisor al prosthesis hear t valves, recurre nt systemic emboli sm. 3.0 - 4.5 Comments to Metallurgical Inspector: WILL BRING SPECIMAN TO THE LABPTT [id number] 06:05:00 Test Item Value Reference Range Interpretation Comments PTT ACTIVATED (test code = APTT) 34.6 SECONDS 25.1-36.5 N Comments to Metallurgical Inspector: WILL BRING SPECIMAN TO THE [id number] 06:04:00 Test Item Value Reference Range Interpretation Comments MAGNESIUM (test code = MAG) 1.9 MG/DL 1.6-2.3 N BASIC METABOLIC [id number] 06:04:00 Test Item Value Reference Range Interpretation Comments SODIUM (test code = 140 MMOL/L 137-145 N NA) POTASSIUM (test code = 3.7 MMOL/L 3.5-5.1 N K) CHLORIDE (test code = 100 MMOL/L 98-107 N CL) CARBON DIOXIDE (test 30 MMOL/L 22-30 N code = CO2) GLUCOSE (test code = 98 MG/DL 74-106 N GLU) BLOOD UREA NITROGEN 23 MG/DL 9-20 H (test code = BUN) GLOMERULAR FILTRATION > 60 Report ing units: RATE (test code = GFR) ml/mi n/1.73 m2 (Modified MDRD Formula)Referen ce Range: > or = 6 0 ml/min/1.73 m2 CREATININE (test code 0.90 MG/DL 0.66-1.25 N = CREAT) CALCIUM (test code = 9.6 MG/DL 8.4-10.2 N CA) LIPID PROFILE (CORONARY RISK)2021-03-28 06:04:00 Test Item Value Reference Range Interpretation Comments TRIGLYCERIDES (test 188 MG/DL TRIGLYCE RIDES code = TRIG) REFERENCE RANGE:Normal: < 150 mg/dLBorderline High: 150-199 mg/dLHi gh: 200-499 mg/dLVe ry High: >=500 mg/ dL CHOLESTEROL (test code 185 MG/DL <200 = CHOL) HDL CHOLESTEROL (test 59 MG/DL 40-59 N code = HDL) LIPOPROTEIN LDL (test MG/DL 0-99 code = LDL) CBC W/AUTO [id number] 05:51:00 Test Item Value Reference Range Interpretation Comments WHITE BLOOD CELL (test code = 7.8 K/MM3 3.8-9.8 N WBC) RED BLOOD CELL (test code = 4.80 M/MM3 3.95-5.67 N RBC) HEMOGLOBIN (test code = HGB) 15.0 G/DL 12.4-16.7 N HEMATOCRIT (test code = HCT) 46.6 % 35.9-49.5 N MEAN CELL VOLUME (test code = 97 fL 81.7-96.1 H MCV) MEAN CELL HGB (test code = MCH) 31.3 pg 27.6-33.2 N MEAN CELL HGB CONCETRATION 32.2 % 32.9-35.5 L (test code = MCHC) RED CELL DISTRIBUTION WIDTH 12.9 % 12.1-15.2 N (test code = RDW) PLATELET COUNT (test code = 199 K/MM3 129-368 N PLT) MEAN PLATELET VOLUME (test code 10.6 fl 7.4-10.4 H = MPV) NEUTROPHIL % (test code = NT%) 46.0 % 43-75 N IMMATURE GRANULOCYTE % (test 0.6 % 0.0-2.0 N code = IG%) LYMPHOCYTE % (test code = LY%) 34.1 % 14-44 N MONOCYTE % (test code = MO%) 11.9 % 4-13 N EOSINOPHIL % (test code = EO%) 6.2 % 0-6 H BASOPHIL % (test code = BA%) 1.2 % 0-2 N NUCLEATED RBC % (test code = 0.0 % 0-1.0 N NRBC%) NEUTROPHIL # (test code = NT#) 3.57 K/mm3 2.0-7.6 N IMMATURE GRANULOCYTE # (test 0.05 x10 3/uL 0-0.03 H code = IG#) LYMPHOCYTE # (test code = LY#) 2.65 K/mm3 1.0-3.8 N MONOCYTE # (test code = MO#) 0.92 K/mm3 0.1-0.8 H EOSINOPHIL # (test code = EO#) 0.48 K/mm3 0.0-0.2 H BASOPHIL # (test code = BA#) 0.09 K/mm3 0.0-0.2 N NUCLEATED RBC # (test code = 0.00 K/mm3 0.0-0.1 N NRBC#)
[2022-09-13 11:24] LABS: Absolute Lymphocytes (CBC) 0.2 K/uL (0.7-4.9); Hematocrit 39.5 % (39.6-49.0); Lymphocytes % 1.5 % (15.3-44.8); MCV 90.3 fL (80-100); MPV 8.2 fL (7.6-11.3); RBC Red Blood Cell Count 4.37 M/uL (4.33-5.43)
--- NOTE | 2022-09-13 11:31 | RAD REPORT ---
EXAM DESCRIPTION: CT - Head Brain Wo Cont - 09/13/2022 11:17 am CLINICAL HISTORY: Syncope COMPARISON: None. TECHNIQUE: Computed axial tomography of the head was obtained. IV contrast was not requested. All CT scans are performed using dose optimization technique as appropriate and may include automated exposure control or mA/KV adjustment according to patient size. FINDINGS: An intracranial bleed is not seen . The ventricles are normal in caliber. No significant hypodense areas within the brain visualized No extra-axial fluid collection is noted. Fluid within the sinuses/ mastoids is not seen. Chronic left maxillary sinusitis IMPRESSION: No acute intracranial abnormality is seen. If patient's symptoms persist MRI of the bra in would be recommended.
[2022-09-13 11:45] LABS: Magnesium 1.7 mg/dL (1.6-2.4)
[2022-09-13 11:57] LABS: SARS-COV-2 RT PCR NEGATIVE (NEGATIVE)
--- NOTE | 2022-09-13 12:16 | RAD REPORT ---
EXAM DESCRIPTION: Catrina Single View09/13/2022 12:06 pm CLINICAL HISTORY: Syncope COMPARISON: 2010 FINDINGS: The lungs appear clear of acute infiltrate. The heart appears borderline enlarged. Postsurgical changes involve the chest. Aortic stent in place. IMPRESSION: No acute abnormalities displayed
[2022-09-13] MEDS ORDERED: NA CHLORIDE 0.9% 500 ML ONE (12:27)
[2022-09-13 12:28] LABS: Blood Morphology Comment NOT SEEN (NOT SEEN); Platelet Estimate ADEQ; White Blood Cell Scan OK (OK)
--- NOTE | 2022-09-13 13:15 | RAD REPORT ---
EXAM DESCRIPTION: CT - Chest For Pe Angio - 09/13/2022 12:52 pm CLINICAL HISTORY: syncope, aortic dissection in past COMPARISON: CTANGIO AORTA FOR DISSECTION dated 11/25/2010 TECHNIQUE: Dynamically enhanced axial 3 mm thick images of the chest were obtained during administra tion of <100> mL Isovue 370 IV contrast. Coronal and oblique reconstruction images were generated and reviewed. Exam utilizes a protocol for optimal evaluation of pulmonary arterial tree. Maximum intensity projections 3D imaging was utilized All CT scans are performed using dose optimization technique as appropriate and may include automated exposure control or mA/KV adjustment according to patient size. FINDINGS: Chest Wall: No suspicious thyroid nodules or pathologic lymphadenopathy. Lungs: No acute abnormality. Pleura: No significant effusions or pneumothorax. Mediastinum/sarah: No pathologic lymphadenopathy. Pulmonary arteries/Aorta: No filling defect identified. Stent graft in the thoracic aorta extending f rom about the mid arch to the distal descending thoracic aorta for dissection and resultant aneurysm. The aneurysm sac measures up to 5.5 cm. The dissection does extend into the abdominal aortic though this is only partially imaged. Heart: No significant pericardial effusion. Normal heart size. Multi-vessel coronary artery disease. Upper abdomen: Cholelithiasis without CT is acute cholecystitis. Bones: No acute abnormality. Sternotomy. IMPRESSION: Negative for pulmonary embolism. Aortic stent graft placement for prior aortic dissectio n. No recent comparisons are available. The lungs are clear.
--- NOTE | 2022-09-13 13:50 | EDPHYS ---
Physician Documentation [facility] Name: Wander Jean Age: 66 yrs Sex: Male : 1955 Arrival Date: 09/13/2022 Time: 10:53 Bed 3 Private MD: ED Physician Perez Croft HPI: 09/13 12:17 This 66 yrs old Male presents to ER via EMS with complaints of syncope. jr8 12:17 The patient has experienced syncope, lost consciousness. Onset: The symptoms/episode jr8 began/occurred acutely, today. Duration: This was a single episode. Context: occurred at work. Associated injury: The patient did not suffer any apparent associated injury. Associated signs and symptoms: Pertinent positives: lightheadedness, nausea. Current symptoms: Currently, the patient is not experiencing any symptoms, the patient feels back to baseline, no decreased level of consciousness, no confusion, no dysphasia, no headache, no paralysis, no visual changes. The patient has not experienced similar symptoms in the past. The patient has not recently seen a physician. Patient stated that he has felt mild nausea throughout yesterday and today. Today while at work became very nauseous and thought he was going to vomit. Got down on 1 knee to try and vomit and then he became lightheaded and passed out for few seconds. EMS called at that time by coworkers. Denies any chest tightness, visual disturbances, headache, palpitations, shortness of breath. Denies having similar symptoms in the past. Patient did admit to having significant cardiac history including aortic aneurysm with stent placement and having open bypass surgery in the past as well.. Historical: - Allergies: 10:58 No Known Allergies; ll1 - PMHx: 10:58 Hypertensive disorder; Hypercholesterolemia; Aortic aneurysm; ll1 - Immunization history:: Client reports receiving the 2nd dose of the Covid vaccine. - Social history:: Smoking status: Patient denies any tobacco usage or history of. ROS: 12:17 Eyes: Negative for injury, pain, redness, and discharge, ENT: Negative for injury, jr8 pain, and discharge, Neck: Negative for injury, pain, and swelling, Cardiovascular: Negative for chest pain, palpitations, and edema, Respiratory: Negative for shortness of breath, cough, wheezing, and pleuritic chest pain. 12:17 Abdomen/GI: Positive for nausea. 12:17 Neuro: Positive for syncope. Exam: 12:21 Constitutional: This is a well developed, well nourished patient who is awake, alert, jr8 and in no acute distress. Eyes: Pupils equal round and reactive to light, extra-ocular motions intact. Lids and lashes normal. Conjunctiva and sclera are non-icteric and not injected. Cornea within normal limits. Periorbital areas with no swelling, redness, or edema. Neck: Trachea midline, no thyromegaly or masses palpated, and no cervical lymphadenopathy. Supple, full range of motion without nuchal rigidity, or vertebral point tenderness. No Meningismus. Cardiovascular: Regular rate and rhythm with a normal S1 and S2. No gallops, murmurs, or rubs. Normal PMI, no JVD. No pulse deficits. Respiratory: Lungs have equal breath sounds bilaterally, clear to auscultation and percussion. No rales, rhonchi or wheezes noted. No increased work of breathing, no retractions or nasal flaring. Abdomen/GI: Soft, non-tender, with normal bowel sounds. No distension or tympany. No guarding or rebound. No evidence of tenderness throughout. Skin: Warm, dry with normal turgor. Normal color with no rashes, no lesions, and no evidence of cellulitis. MS/ Extremity: Pulses equal, no cyanosis. Neurovascular intact. Full, normal range of motion. Neuro: Awake and alert, GCS 15, oriented to person, place, time, and situation. Cranial nerves II-XII grossly intact. Motor strength 5/5 in all extremities. Sensory grossly intact. 12:21 ECG was reviewed by the Attending Physician. Vital Signs: 10:53 Temp 98; ph 10:53 BP 110 / 66; Pulse 94; Resp 16; Temp 98.5; Pulse Ox 98% on R/A; Weight 92.99 kg; Height ph 5 ft. 7 in. (170.18 cm); Pain 0/10; 10:58 BP 110 / 66; Pulse 96; Resp 17; Pulse Ox 97% ; Weight 92.99 kg; Height 5 ft. 7 in. ll1 (170.18 cm); Pain 0/10; 11:24 BP 112 / 67; Pulse 90; Resp 18; Pulse Ox 98% on R/A; ph 12:30 BP 112 / 62; Pulse 85; Resp 18; Pulse Ox 99% on R/A; ph 13:30 BP 114 / 64; Pulse 84; Resp 16; Temp 97.8; Pulse Ox 99% on R/A; ph 10:58 Body Mass Index 32.11 (92.99 kg, 170.18 cm) ll1 MDM: 10:56 Patient medically screened. jr8 13:27 Differential Diagnosis: aortic aneurysm, cardiac arrhythmia, cerebrovascular accident, jr8 drug effect, idiopathic syncope, seizure, sepsis, vasovagal episode. Data reviewed: vital signs, nurses notes, lab test result(s), EKG, radiologic studies, CT scan, plain films. Data interpreted: Pulse oximetry: on room air is 98 %. Interpretation: normal. Counseling: I had a detailed discussion with the patient and/or guardian regarding: the historical points, exam findings, and any diagnostic results supporting the discharge/admit diagnosis, lab results, radiology results, the need for outpatient follow up, a corporate strategy associate, a family practitioner, to return to the emergency department if symptoms worsen or persist or if there are any questions or concerns that arise at home. Response to treatment: the patient's symptoms have resolved after treatment. ED course: Patient remained hemodynamically stable while in the emergency room. No acute findings on lab work or imaging. Discussed with patient that he has stable aortic graft findings without new aneurysm or dissection. Unknown as to why he had the syncopal episode today but at this time no acute cardiovascular, pulmonary vascular, or neurologic findings suspected based on symptomology and what patient discussed with us. We had patient ambulate to ensure he was stable and that no new signs or symptoms develop. Patient was able to do this without any problem. Recommended that he see his primary care and cardiology within the next 24 to 48 hours. To immediately come back if you are to have any change in symptoms or new symptoms. Patient and family good with plan.. 09/13 10:59 Order name: Basic Metabolic Panel; Complete Time: 12:09/13 10:59 Order name: CBC with Diff; Complete Time: 12:31 09/13 10:59 Order name: Magnesium; Complete Time: 12:19 09/13 10:59 Order name: NT PRO-BNP; Complete Time: 12:09/13 10:59 Order name: Troponin HS; Complete Time: 12:19 jr8 09/13 10:59 Order name: COVID-19/FLU A+B; Complete Time: 12:19 jr8 09/13 10:59 Order name: XRAY Chest (1 view); Complete Time: 12:19 jr8 09/13 10:59 Order name: EKG; Complete Time: 11:00 jr8 09/13 10:59 Order name: Cardiac monitoring; Complete Time: 11:17 jr8 09/13 10:59 Order name: EKG - Nurse/Tech; Complete Time: 11:17 jr8 09/13 10:59 Order name: CT Head Brain wo Cont; Complete Time: 11:34 jr8 09/13 11:31 Order name: CBC Smear Scan; Complete Time: 12:31 EDMS 09/13 12:21 Order name: CT Chest For PE Angio; Complete Time: 13:17 jr8 09/13 10:59 Order name: IV Saline Lock; Complete Time: 11:17 jr8 09/13 10:59 Order name: Labs collected and sent; Complete Time: 11: jr8 09/13 10:59 Order name: O2 Per Protocol; Complete Time: 11: jr8 09/13 10:59 Order name: O2 Sat Monitoring; Complete Time: 11:17 EC:21 Rate is 92 beats/min. Rhythm is regular, Sinus Rhythm. QRS [place] is Normal. IN interval jr8 is normal at 146 msec. QRS interval is normal at 80 msec. QT interval is normal at 346 msec. No Q waves. T waves are Normal. No ST changes noted. Clinical impression: Normal ECG. Interpreted by me. Reviewed by me. Administered Medications: 12:31 Not Given (got 1 liter per EMS): NS 0.9% 500 ml IV at bolus once ph Disposition: 18:24 Co-signature as Attending Physician, Perez YEE was immediately available onsite ms3 in the emergency department for consultation in the care of the patient. Disposition Summary: 09/13/22 13:50 Discharge Ordered Location: Home [facility] Problem: new jr8 Symptoms: have improved jr8 Condition: Stable jr8 Diagnosis - Idiopathic Syncope jr8 Followup: jr8 - With: Private Physician - When: 1 - 2 days - Reason: Recheck today's complaints, Continuance of care, Re-evaluation by your physician Discharge Instructions: - Syncope jr8 - Discharge Summary Sheet ph Forms: - Medication Reconciliation Form jr8 - Thank You Letter jr8 - Antibiotic Education jr8 - Prescription Opioid Use jr8 - Work release form ph Signatures: Dispatcher [employer] Geovani Fernandez PA PA jr8 Joelle Gonsales RN RN ll1 Perez Croft DO DO ms3 Martha Barajas RN ph
--- NOTE | 2022-09-13 13:50 | ER ---
Nurse's Notes [facility] Name: Wander Jean Age: 66 yrs Sex: Male : 1955 Arrival Date: 09/13/2022 Time: 10:53 Bed 3 Private MD: Diagnosis: Idiopathic Syncope Presentation: 09/13 10:53 Coronavirus screen: Vaccine status: Patient reports being unvaccinated. Ebola Screen: ph No symptoms or risks identified at this time. Initial Sepsis Screen: Does the patient meet any 2 criteria? No. Patient's initial sepsis screen is negative. Does the patient have a suspected source of infection? No. Patient's initial sepsis screen is negative. Risk Assessment: Do you want to hurt yourself or someone else? Patient reports no desire to harm self or others. 10:53 Method Of Arrival: EMS: [facility] 10:58 Chief complaint: Patient states: Sudden nausea started at work then had syncopal event ll1 for 5-10 seconds. Had 2 "loose stools" earlier today. Family members had GI bug this past weekend. No fever, cough, or pain. Coronavirus screen: Vaccine status: Patient reports receiving the 2nd dose of the covid vaccine. Client denies travel out of the [place] in the last 14 days. diarrhea, fatigue, nausea, Client presents with at least one sign or symptom that may indicate coronavirus-19. Standard/surgical mask placed on the client. Ebola Screen: Patient denies travel to an Ebola-affected area in the 21 days before illness onset. Initial Sepsis Screen: Does the patient meet any 2 criteria? HR > 90 bpm. No. Patient's initial sepsis screen is negative. Does the patient have a suspected source of infection? No. Patient's initial sepsis screen is negative. Risk Assessment: Do you want to hurt yourself or someone else? Patient reports no desire to harm self or others. Onset of symptoms was September 13, 2022. 10:58 Method Of Arrival: EMS: [place] [id number] 10:58 Acuity: JUICE 2 ll1 Triage Assessment: 11:02 General: Appears in no apparent distress. Behavior is calm, cooperative, appropriate ll1 for age. Pain: Denies pain. Neuro: Reports dizziness, a syncopal episode. Cardiovascular: No deficits noted. Respiratory: No deficits noted. GI: Reports diarrhea, nausea. Historical: - Allergies: 10:58 No Known Allergies; ll1 - PMHx: 10:58 Hypertensive disorder; Hypercholesterolemia; Aortic aneurysm; ll1 - Immunization history:: Client reports receiving the 2nd dose of the Covid vaccine. - Social history:: Smoking status: Patient denies any tobacco usage or history of. Screenin:24 Abuse screen: Denies threats or abuse. Denies injuries from another. Nutritional ph screening: No deficits noted. Tuberculosis screening: No symptoms or risk factors identified. Fall Risk Assessment: 11:19 Reassessment: No changes from previously documented assessment. back from CT. ll1 12:13 Reassessment: No changes from previously documented assessment. Patient and/or family ll1 updated on plan of care and expected duration. Pain level reassessed. Patient is alert, oriented x 3, equal unlabored respirations, skin warm/dry/pink. 13:23 Reassessment: Patient appears in no apparent distress at this time. Patient and/or ph family updated on plan of care and expected duration. Pain level reassessed. Patient is alert, oriented x 3, equal unlabored respirations, skin warm/dry/pink. Provider at bedside to speak w/ pt. 13:49 Reassessment: Patient appears in no apparent distress at this time. Patient and/or ph family updated on plan of care and expected duration. Pain level reassessed. Patient is alert, oriented x 3, equal unlabored respirations, skin warm/dry/pink. Pt ambulated around unit accompanied by nurse, steady gait noted, denies dizziness, ERP notified, awaiting d/c home. Vital Signs: 10:53 Temp 98; ph 10:53 BP 110 / 66; Pulse 94; Resp 16; Temp 98.5; Pulse Ox 98% on R/A; Weight 92.99 kg; Height ph 5 ft. 7 in. (170.18 cm); Pain 0/10; 10:58 BP 110 / 66; Pulse 96; Resp 17; Pulse Ox 97% ; Weight 92.99 kg; Height 5 ft. 7 in. ll1 (170.18 cm); Pain 0/10; 11:24 BP 112 / 67; Pulse 90; Resp 18; Pulse Ox 98% on R/A; ph 12:30 BP 112 / 62; Pulse 85; Resp 18; Pulse Ox 99% on R/A; ph 13:30 BP 114 / 64; Pulse 84; Resp 16; Temp 97.8; Pulse Ox 99% on R/A; ph 10:58 Body Mass Index 32.11 (92.99 kg, 170.18 cm) ll1 Vitals: 11:24 Cardiac Rhythm Assessment Sinus rhythm. ph ED Course: 10:53 Patient arrived in ED. ph 10:53 Martha Barajas RN is Primary Nurse. ph 10:56 Geovani Hernandez PA is PHCP. jr8 10:56 Perez Croft DO is Attending Physician. jr8 11:00 Maintain EMS IV. Dressing intact. Good blood return noted. Site clean \\T\\ dry. Gauge \\T\\ ll 1 site: 18 R FA. 11:02 Triage completed. ll1 11:02 Arm band placed on Patient placed in an exam room, on a stretcher. ll1 11:02 Patient has correct armband on for positive identification. Bed in low position. Call ll1 light in reach. Client placed on continuous cardiac and pulse oximetry monitoring. NIBP monitoring applied. traffic monitor specialist on. 11:17 Initial lab(s) drawn, by me, sent to lab. ll1 11:17 COVID-19/FLU A+B Sent. ll1 11:19 CT Head Brain wo Cont In Process Unspecified. EDMS 12:07 XRAY Chest (1 view) In Process Unspecified. EDMS 12:54 CT Chest For PE Angio In Process Unspecified. EDMS 13:50 No provider procedures requiring assistance completed. IV discontinued, intact, ph bleeding controlled, No redness/swelling at site. Pressure dressing applied. Administered Medications: 12:31 Not Given (got 1 liter per EMS): NS 0.9% 500 ml IV at bolus once ph Medication: 11:02 VIS not applicable for this client. ll1 Outcome: 13:50 Discharge ordered by MD. rosen 13:59 Discharged to home ambulatory, with family. ph 13:59 Condition: good 13:59 Discharge instructions given to patient, Instructed on discharge instructions, follow up and referral plans. Demonstrated understanding of instructions, follow-up care. 13:59 Patient left the ED. ph Signatures: Dispatcher [employer] EDMS Geovani Hernandez PA PA jr8 Martha Barajas RN RN ph Joelle Gonsales RN RN ll1
[2022-09-13 14:07] VITALS: O2SAT 99
[2022-09-13 14:08] VITALS: BP 114/64; TEMP 97.8
--- NOTE | 2022-09-14 14:38 | EKG ---
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
== END 2022-09-13 13:59 | disposition home or self-care (01) ==
LOC: ER 10:52
DX: R55 Syncope and collapse (principal); I10 Essential (primary) hypertension; E78.00 Pure hypercholesterolemia, unspecified; Z20.822 Contact with and (suspected) exposure to COVID-19
CPT/HCPCS: 93005; 85025; 80048; 36415; 83735; 84484; 83880; 0240U; 70450; 71275; 71045; Q9967; J7040; 99284